=== PATIENT | female | born 1945 | race African-American/Black ===

== ENCOUNTER 2022-09-19 22:40 | Observation (INO) | payer MEDICARE ==
[2022-09-19] MEDS ORDERED: Albuterol 2.5 MG/0.5 ML NEB ONE (23:12)
[2022-09-19] MEDS ORDERED: Ipratropium Bromide 2.5 ml Neb ONE (23:12)
[2022-09-19 23:18] LABS: #Eosinphils 0.3 thou/uL (0.0-0.7); #Monocytes 0.8 thou/uL (0.11-0.59); #Neutrophils 6.1 thou/uL (1.40-6.50); %Basophils 0.3 % (0.0-1.0); %Eosinophils 2.6 % (0.0-10.0); %Lymphocytes 28.5 % (21.0-51.0); %Neutrophils 60.1 % (42.0-75.0); Hemoglobin 12.2 g/dL (12.0-16.0); Mean Corpuscular HGB CONC 32.3 g/dL (32.0-36.0); Mean Corpuscular Hemoglobin 34.7 pg (27.0-31.0); Mean Corpuscular Volume 107.4 fl (78.0-98.0); Mean Platelet Volume 8.6 fL (7.4-10.4); Platelet Count 449 10x3/uL (130-400); RBC Distribution Width 12.5 % (11.5-14.5); Red Blood Cell (RBC) Count 3.52 mill/uL (4.20-5.40); White Blood Cell (WBC) Count 10.2 10x3/uL (4.8-10.8)
[2022-09-19 23:41] LABS: ALT (SGPT) 26 U/L (8-55); AST (SGOT) 25 U/L (5-34); Albumin 4.4 g/dL (3.4-4.8); Alkaline Phosphatase 111 U/L (40-110); Anion Gap 15 mmol/L (10-20); BUN (Urea Nitrogen) 29 mg/dL (9.8-20.1); Bilirubin, Total 0.3 mg/dL (0.2-1.2); Calc. Creatinine Clearance 0 mL/min (70-130); Calcium 10.5 mg/dL (7.8-10.44); Carbon Dioxide 33 mmol/L (23-31); Chloride 95 mmol/L (98-107); Estimated GFR 73; Globulin 4.6 g/dL (2.4-3.5); Glucose 111 mg/dL (83-110); Sodium 138 mmol/L (136-145)
[2022-09-20] MEDS ORDERED: Ondansetron PF 4 MG/2 ML Vial ONE (02:47)
[2022-09-20] MEDS ORDERED: Ondansetron PF 4 MG/2 ML Vial IVP PRN (03:48)
[2022-09-20] MEDS ORDERED: Ondansetron ODT 4 MG TAB PO PRN (03:48)
[2022-09-20] MEDS ORDERED: Acetaminophen 650 MG Suppository PR PRN (03:48)
[2022-09-20] MEDS ORDERED: Acetaminophen 325 MG TAB PO PRN (03:48)
[2022-09-20] MEDS ORDERED: Ipratropium/Albuterol 3 ML NEB NEB PRN (03:58)
[2022-09-20] MEDS ORDERED: methylPREDNISolone Sod Succ 40 MG VIAL IVP SCH (04:45)
[2022-09-20] MEDS ORDERED: methylPREDNISolone Sod Succ/PF 125 MG/2 ML VIAL ONE (04:47)
[2022-09-20] MEDS ORDERED: methylPREDNISolone Sod Succ 40 MG VIAL ONE (04:51)
[2022-09-20] MEDS: Mometasone 200 MCG/Formoterol 5 MCG 120 PUFF INHALER INH SCH ×2 (08:04→18:44)
[2022-09-20] MEDS ORDERED: Iopamidol-370 76% 500 ML MDV (1 ML CHARGE) ONE (12:00)
[2022-09-20 13:21] VITALS: BMI 12.7
[2022-09-21 04:27] LABS: Red Blood Cell (RBC) Count 2.82 mill/uL (4.20-5.40)
[2022-09-21 04:28] LABS: #Eosinphils 0.3 thou/uL (0.0-0.7); #Monocytes 0.8 thou/uL (0.11-0.59); #Neutrophils 4.1 thou/uL (1.40-6.50); %Basophils 0.2 % (0.0-1.0); %Eosinophils 3.6 % (0.0-10.0); %Lymphocytes 34.9 % (21.0-51.0); %Monocytes 9.7 % (0.0-10.0); %Neutrophils 51.5 % (42.0-75.0); Hemoglobin 9.9 g/dL (12.0-16.0); Mean Corpuscular HGB CONC 32.5 g/dL (32.0-36.0); Mean Corpuscular Hemoglobin 35.1 pg (27.0-31.0); Mean Corpuscular Volume 108.2 fl (78.0-98.0); Mean Platelet Volume 8.6 fL (7.4-10.4); Platelet Count 377 10x3/uL (130-400); RBC Distribution Width 12.2 % (11.5-14.5)
[2022-09-21 04:49] LABS: Anion Gap 14 mmol/L (10-20); BUN (Urea Nitrogen) 31 mg/dL (9.8-20.1); Calc. Creatinine Clearance 31 mL/min (70-130); Calcium 9.3 mg/dL (7.8-10.44); Carbon Dioxide 30 mmol/L (23-31); Chloride 99 mmol/L (98-107); Estimated GFR 81; Glucose 99 mg/dL (83-110); Potassium 4.8 mmol/L (3.5-5.1); Sodium 138 mmol/L (136-145)
[2022-09-21] MEDS: Mometasone 200 MCG/Formoterol 5 MCG 120 PUFF INHALER INH SCH ×2 (07:16→19:05)
[2022-09-21] MEDS: methylPREDNISolone Sod Succ 40 MG VIAL IVP SCH (10:24)
[2022-09-21] MEDS: cefTRIAXone\\ROCEPHIN 1 GM in Sodium Chloride 0.9% 100 ML IVPB SCH (15:28)
[2022-09-22] MEDS: Mometasone 200 MCG/Formoterol 5 MCG 120 PUFF INHALER INH SCH (07:08)
[2022-09-22] MEDS: methylPREDNISolone Sod Succ 40 MG VIAL IVP SCH (09:21)
[2022-09-22 16:13] VITALS: BP 116/71; TEMP 96.7
[2022-09-22] MEDS: cefTRIAXone\\ROCEPHIN 1 GM in Sodium Chloride 0.9% 100 ML IVPB SCH (17:04)
== END 2022-09-22 17:03 | disposition home or self-care (01) ==
LOC: EDBD → ERS 22:40 → EDBD 22:40 → ERHOLD 09-20 03:52 → 2NO 09-20 12:04
PROVIDERS: ADMIT Student in an Organized Health Care Education/Training Program; ATTEND Internal Medicine
DX: J44.1 Chronic obstructive pulmonary disease with (acute) exacerbation (principal); R07.9 Chest pain, unspecified; R00.0 Tachycardia, unspecified; E87.3 Alkalosis; E83.52 Hypercalcemia; I11.0 Hypertensive heart disease with heart failure; I50.9 Heart failure, unspecified; R62.7 Adult failure to thrive; Z79.52 Long term (current) use of systemic steroids
CPT/HCPCS: 71045; 71275; 80048; 80053; 82310; 83605; 83880; 84484; 85025 ×2; 93005; 94640 ×4; 96374; 96375 ×2; 96376 ×2; 97116; 99285; G0378 ×4; 36415; J0696; J2405; J2920; J2930; J3490; J7611; Q9967

== ENCOUNTER 2022-09-25 10:46 | Emergency (ER) | payer MEDICARE ==
[2022-09-25] MEDS ORDERED: Magnesium 2 GM/50 ML BAG (IN WATER) ONE (11:31)
[2022-09-25] MEDS ORDERED: Doxycycline 100 MG CAP ONE (11:31)
[2022-09-25] MEDS ORDERED: predniSONE 20 MG TAB ONE (11:31)
[2022-09-25] MEDS ORDERED: Ipratropium/Albuterol 3 ML NEB ONE (11:32)
[2022-09-25 11:40] LABS: #Eosinphils 0.2 thou/uL (0.0-0.7); #Monocytes 0.7 thou/uL (0.11-0.59); #Neutrophils 4.1 thou/uL (1.40-6.50); %Basophils 0.4 % (0.0-1.0); %Eosinophils 2.7 % (0.0-10.0); %Lymphocytes 29.6 % (21.0-51.0); %Monocytes 9.7 % (0.0-10.0); %Neutrophils 57.5 % (42.0-75.0); Hemoglobin 10.4 g/dL (12.0-16.0); Mean Corpuscular HGB CONC 31.8 g/dL (32.0-36.0); Mean Corpuscular Volume 110.1 fl (78.0-98.0); Mean Platelet Volume 8.8 fL (7.4-10.4); Platelet Count 410 10x3/uL (130-400); RBC Distribution Width 12.2 % (11.5-14.5); Red Blood Cell (RBC) Count 2.97 mill/uL (4.20-5.40); White Blood Cell (WBC) Count 7.1 10x3/uL (4.8-10.8)
[2022-09-25 12:02] LABS: CellaVision Operator ID LAB.MJL; Macrocytosis SLIGHT = 6-15 cells HPF (0-5); Platelet Adequacy Comment Platelets Increased; Polychromasia SLIGHT = 2-3 cells HPF (0-2)
[2022-09-25 12:06] LABS: ALT (SGPT) 23 U/L (8-55); AST (SGOT) 23 U/L (5-34); Albumin 3.9 g/dL (3.4-4.8); Alkaline Phosphatase 120 U/L (40-110); Anion Gap 13 mmol/L (10-20); BUN (Urea Nitrogen) 19 mg/dL (9.8-20.1); Bilirubin, Total 0.5 mg/dL (0.2-1.2); Calc. Creatinine Clearance 0 mL/min (70-130); Calcium 9.5 mg/dL (7.8-10.44); Carbon Dioxide 31 mmol/L (23-31); Chloride 99 mmol/L (98-107); Estimated GFR 85; Glucose 79 mg/dL (83-110); Potassium 4.7 mmol/L (3.5-5.1); Protein, Total 7.9 g/dL (5.8-8.1); Sodium 138 mmol/L (136-145)
== END 2022-09-25 13:17 | disposition home or self-care (01) ==
LOC: ERS 10:46
DX: J44.1 Chronic obstructive pulmonary disease with (acute) exacerbation (principal); I11.0 Hypertensive heart disease with heart failure; I50.9 Heart failure, unspecified; Z79.51 Long term (current) use of inhaled steroids; Z79.899 Other long term (current) drug therapy
CPT/HCPCS: 36415; 71045; 80053; 83880; 84484; 85025; 93005; 96365; J3475; J7512; J7620

== ENCOUNTER 2022-09-29 13:23 | Inpatient (IN) | payer MEDICARE ==
[~2022-09-29 13:23] MED LIST: Iopamidol-370 76% 500 ML MDV (1 ML CHARGE) ONE
[2022-09-29 14:12] LABS: #Monocytes 0.1 thou/uL (0.11-0.59); #Neutrophils 7.1 thou/uL (1.40-6.50); %Basophils 0.1 % (0.0-1.0); %Lymphocytes 15.3 % (21.0-51.0); %Monocytes 1.3 % (0.0-10.0); %Neutrophils 83.1 % (42.0-75.0); Hemoglobin 10.9 g/dL (12.0-16.0); Mean Corpuscular HGB CONC 32.2 g/dL (32.0-36.0); Mean Corpuscular Hemoglobin 34.7 pg (27.0-31.0); Mean Platelet Volume 8.8 fL (7.4-10.4); Platelet Count 381 10x3/uL (130-400); Red Blood Cell (RBC) Count 3.14 mill/uL (4.20-5.40); White Blood Cell (WBC) Count 8.5 10x3/uL (4.8-10.8)
[2022-09-29 14:39] LABS: ALT (SGPT) 37 U/L (8-55); AST (SGOT) 29 U/L (5-34); Alkaline Phosphatase 126 U/L (40-110); Anion Gap 17 mmol/L (10-20); BUN (Urea Nitrogen) 18 mg/dL (9.8-20.1); Bilirubin, Total 0.3 mg/dL (0.2-1.2); Calc. Creatinine Clearance 0 mL/min (70-130); Calcium 9.8 mg/dL (7.8-10.44); Carbon Dioxide 28 mmol/L (23-31); Chloride 97 mmol/L (98-107); Estimated GFR 85; Globulin 3.6 g/dL (2.4-3.5); Glucose 120 mg/dL (83-110); Potassium 4.5 mmol/L (3.5-5.1); Protein, Total 7.6 g/dL (5.8-8.1); Sodium 137 mmol/L (136-145)
[2022-09-29 14:40] LABS: Bacteria/HPF None Seen HPF (None Seen); Bilirubin Negative (Negative); Blood, Urine Negative (Negative); CAUTI Indications for Culture Dysuria,urgency,freq; Clarity Clear (Clear); Glucose, Urine (Dipstick) Normal (Negative); Ketone, Urine Negative (Negative); Leukocyte Negative Leu/uL (Negative); Nitrite Negative (Negative); Protein, Urine (Dipstick) Negative (Neg-Trace); RBC/HPF 0-3 HPF (0-3); Specific Gravity, Urine 1.013 (1.002-1.036); Squamous Epithelial 0-3 HPF (0-3); Urobilinogen Normal mg/dL (Less than 2); WBC/HPF 0-3 HPF (0-3); pH, Urine 7.5 (5.0-9.0)
[2022-09-29 14:42] LABS: Urine Culture Reflex No No
[2022-09-29] MEDS ORDERED: methylPREDNISolone Sod Succ/PF 125 MG/2 ML VIAL ONE (14:52)
[2022-09-29] MEDS ORDERED: Ipratropium/Albuterol 3 ML NEB ONE ×2 (15:14→18:41)
[2022-09-29 17:10] LABS: Lactic Acid 2.8 mmol/L (0.5-2.2)
[2022-09-29 17:15] LABS: Lipase 9 U/L (8-78)
[2022-09-29] MEDS ORDERED: cefTRIAXone (ROCEPHIN) 2 GM VIAL ONE (18:38)
[2022-09-29 20:12] LABS: Troponin I Less than 0.010 ng/mL (< 0.028)
[2022-09-29] MEDS ORDERED: Senokot S 8.6-50 MG TAB PO PRN (20:33)
[2022-09-29] MEDS ORDERED: Ondansetron ODT 4 MG TAB PO PRN (20:33)
[2022-09-29] MEDS ORDERED: Acetaminophen 325 MG TAB PO PRN (20:33)
[2022-09-29] MEDS ORDERED: Azithromycin 500 MG VIAL ONE (20:42)
[2022-09-29] MEDS ORDERED: Famotidine 20 MG TAB PO SCH (21:00)
[2022-09-29] MEDS ORDERED: Cyanocobalamin 1000 MCG/ML VIAL IM SCH (21:00)
[2022-09-29] MEDS: Doxycycline 100 MG CAP PO SCH (21:35)
[2022-09-29] MEDS ORDERED: methylPREDNISolone Sod Succ 40 MG VIAL ONE (23:13)
[2022-09-29] MEDS ORDERED: Famotidine/PF 20 mg/2ml Vial ONE (23:13)
[2022-09-29] MEDS: Sodium Chloride 0.9% 1,000 ML IV SCH (23:22)
[2022-09-29] MEDS: methylPREDNISolone Sod Succ 40 MG VIAL IVP SCH (23:22)
[2022-09-30] MEDS: Ipratropium/Albuterol 3 ML NEB NEB SCH ×4 (00:21→18:35)
[2022-09-30 05:19] LABS: #Monocytes 0.2 thou/uL (0.11-0.59); #Neutrophils 6.4 thou/uL (1.40-6.50); %Lymphocytes 13.2 % (21.0-51.0); %Monocytes 2.1 % (0.0-10.0); %Neutrophils 84.2 % (42.0-75.0); Hemoglobin 8.9 g/dL (12.0-16.0); Mean Corpuscular HGB CONC 33.1 g/dL (32.0-36.0); Mean Corpuscular Hemoglobin 35.2 pg (27.0-31.0); Mean Corpuscular Volume 106.3 fl (78.0-98.0); Mean Platelet Volume 8.9 fL (7.4-10.4); Platelet Count 334 10x3/uL (130-400); RBC Distribution Width 11.9 % (11.5-14.5); Red Blood Cell (RBC) Count 2.53 mill/uL (4.20-5.40); White Blood Cell (WBC) Count 7.6 10x3/uL (4.8-10.8)
[2022-09-30 05:38] LABS: Anion Gap 16 mmol/L (10-20); BUN (Urea Nitrogen) 17 mg/dL (9.8-20.1); Calc. Creatinine Clearance 0 mL/min (70-130); Calcium 8.6 mg/dL (7.8-10.44); Carbon Dioxide 25 mmol/L (23-31); Chloride 102 mmol/L (98-107); Estimated GFR 88; Glucose 111 mg/dL (83-110); Potassium 4.5 mmol/L (3.5-5.1); Sodium 138 mmol/L (136-145)
[2022-09-30] MEDS ORDERED: methylPREDNISolone Sod Succ 40 MG VIAL ONE (09:00)
[2022-09-30] MEDS ORDERED: Famotidine 20 MG TAB ONE (09:00)
[2022-09-30] MEDS ORDERED: cefTRIAXone (ROCEPHIN) 1 GM VIAL ONE (09:00)
[2022-09-30] MEDS ORDERED: Polyethylene Glycol 3350 17 GM Packet PO SCH (09:30)
[2022-09-30] MEDS ORDERED: Senokot S 8.6-50 MG TAB PO SCH (09:30)
[2022-09-30] MEDS ORDERED: Bisacodyl 10 MG SUPP PR SCH ×2 (09:45→21:00)
[2022-09-30] MEDS: Famotidine 20 MG TAB PO SCH (10:00)
[2022-09-30] MEDS: methylPREDNISolone Sod Succ 40 MG VIAL IVP SCH (10:00)
[2022-09-30] MEDS: cefTRIAXone\\ROCEPHIN 1 GM in Sodium Chloride 0.9% 100 ML IVPB SCH (10:00)
[2022-09-30 12:52] VITALS: BMI 15.4
[2022-09-30] MEDS: Sodium Chloride 0.9% 1,000 ML IV SCH (14:32)
[2022-09-30] MEDS: predniSONE 20 MG TAB PO SCH (16:24)
[2022-09-30] MEDS ORDERED: Multivit, Therapeutic 1 TAB PO SCH (21:00)
[2022-09-30] MEDS ORDERED: Folic Acid 1 MG TAB PO SCH (21:00)
[2022-09-30] MEDS ORDERED: Cyanocobalamin (Vitamin B-12) 1,000 MCG TAB PO SCH (21:00)
[2022-09-30] MEDS: Polyethylene Glycol 3350 17 GM Packet PO SCH (21:11)
[2022-09-30] MEDS: Senokot S 8.6-50 MG TAB PO SCH (21:11)
[2022-09-30] MEDS: guaiFENesin ER 600 MG TAB PO SCH (21:11)
[2022-09-30] MEDS: Doxycycline 100 MG CAP PO SCH (21:11)
[2022-10-01] MEDS: Ipratropium/Albuterol 3 ML NEB NEB SCH ×3 (00:44→13:37)
[2022-10-01 04:40] LABS: #Monocytes 0.7 thou/uL (0.11-0.59); #Neutrophils 8.3 thou/uL (1.40-6.50); %Basophils 0.1 % (0.0-1.0); %Lymphocytes 15.9 % (21.0-51.0); %Monocytes 6.4 % (0.0-10.0); %Neutrophils 77.2 % (42.0-75.0); Hemoglobin 9.1 g/dL (12.0-16.0); Mean Corpuscular HGB CONC 32.6 g/dL (32.0-36.0); Mean Corpuscular Hemoglobin 35.5 pg (27.0-31.0); Mean Platelet Volume 8.9 fL (7.4-10.4); Platelet Count 338 10x3/uL (130-400); Red Blood Cell (RBC) Count 2.56 mill/uL (4.20-5.40); White Blood Cell (WBC) Count 10.7 10x3/uL (4.8-10.8)
[2022-10-01 05:15] LABS: Anion Gap 12 mmol/L (10-20); BUN (Urea Nitrogen) 17 mg/dL (9.8-20.1); Calc. Creatinine Clearance 41 mL/min (70-130); Calcium 9.2 mg/dL (7.8-10.44); Carbon Dioxide 27 mmol/L (23-31); Chloride 103 mmol/L (98-107); Estimated GFR 88; Glucose 96 mg/dL (83-110); Potassium 4.4 mmol/L (3.5-5.1); Sodium 138 mmol/L (136-145)
[2022-10-01] MEDS: Polyethylene Glycol 3350 17 GM Packet PO SCH (10:30)
[2022-10-01] MEDS: predniSONE 20 MG TAB PO SCH (10:30)
[2022-10-01] MEDS: guaiFENesin ER 600 MG TAB PO SCH (10:30)
[2022-10-01] MEDS: Doxycycline 100 MG CAP PO SCH (10:31)
[2022-10-01] MEDS: Famotidine 20 MG TAB PO SCH (10:31)
[2022-10-01] MEDS: Senokot S 8.6-50 MG TAB PO SCH (10:31)
[2022-10-01] MEDS: cefTRIAXone\\ROCEPHIN 1 GM in Sodium Chloride 0.9% 100 ML IVPB SCH (10:32)
[2022-10-01 11:12] VITALS: BP 140/66; TEMP 98.3
== END 2022-10-01 16:17 | disposition home or self-care (01) | DRG 189 ==
LOC: ERS 13:23 → ERHOLD 19:10 → 2NO 09-30 12:21 → OBSVTOIN 09-30 16:06
PROVIDERS: ADMIT Student in an Organized Health Care Education/Training Program; ATTEND Internal Medicine
DX: J96.21 Acute and chronic respiratory failure with hypoxia (principal); J44.1 Chronic obstructive pulmonary disease with (acute) exacerbation; E87.20 Acidosis, unspecified; I13.0 Hypertensive heart and chronic kidney disease with heart failure and stage 1 through stage 4 chronic kidney disease, or unspecified chronic kidney disease; I50.9 Heart failure, unspecified; K21.9 Gastro-esophageal reflux disease without esophagitis; D63.1 Anemia in chronic kidney disease; E86.0 Dehydration; N18.2 Chronic kidney disease, stage 2 (mild); K59.00 Constipation, unspecified; Z79.51 Long term (current) use of inhaled steroids; Z79.899 Other long term (current) drug therapy
CPT/HCPCS: 36415; 51701; 71045; 74177; 80048; 80053; 81001; 83605; 83690; 83735; 83880; 84484; 85025; 87040; 87086; 93005; 94640; 96365; 96366; 96367; 96374; 96376; G0378; J0456; J0696; J2920; J2930; J3420; J3490; J7050; J7512; J7620; Q9967; S0028

== ENCOUNTER 2022-11-10 21:50 | Emergency (ER) | payer MEDICARE ==
[2022-11-10 22:33] LABS: #Eosinphils 0.2 thou/uL (0.0-0.7); #Monocytes 0.5 thou/uL (0.11-0.59); #Neutrophils 2.4 thou/uL (1.40-6.50); %Basophils 0.7 % (0.0-1.0); %Eosinophils 3.3 % (0.0-10.0); %Lymphocytes 45.8 % (21.0-51.0); %Monocytes 8.7 % (0.0-10.0); %Neutrophils 41.3 % (42.0-75.0); Hematocrit 31.9 % (36.0-47.0); Hemoglobin 10.3 g/dL (12.0-16.0); Mean Corpuscular HGB CONC 32.3 g/dL (32.0-36.0); Mean Corpuscular Hemoglobin 34.1 pg (27.0-31.0); Mean Corpuscular Volume 105.6 fl (78.0-98.0); Mean Platelet Volume 8.8 fL (7.4-10.4); Platelet Count 377 10x3/uL (130-400); RBC Distribution Width 11.9 % (11.5-14.5); Red Blood Cell (RBC) Count 3.02 mill/uL (4.20-5.40); White Blood Cell (WBC) Count 5.8 10x3/uL (4.8-10.8)
[2022-11-10 22:56] LABS: ALT (SGPT) 16 U/L (8-55); AST (SGOT) 22 U/L (5-34); Albumin 3.6 g/dL (3.4-4.8); Alkaline Phosphatase 72 U/L (40-110); Anion Gap 17 mmol/L (10-20); BUN (Urea Nitrogen) 10 mg/dL (9.8-20.1); Bilirubin, Total 0.4 mg/dL (0.2-1.2); Calc. Creatinine Clearance 0 mL/min (70-130); Calcium 9.1 mg/dL (7.8-10.44); Carbon Dioxide 28 mmol/L (23-31); Chloride 101 mmol/L (98-107); Estimated GFR 88; Globulin 3.5 g/dL (2.4-3.5); Glucose 90 mg/dL (83-110); Potassium 3.3 mmol/L (3.5-5.1); Protein, Total 7.1 g/dL (5.8-8.1); Sodium 143 mmol/L (136-145)
[2022-11-10 22:58] LABS: Troponin I Less than 0.010 ng/mL (< 0.028)
[2022-11-10] MEDS ORDERED: Ipratropium/Albuterol 3 ML NEB ONE (23:20)
[2022-11-10 23:57] LABS: SARS-CoV-2 NAA Rapid Test Not Detected (NotDetected)
[2022-11-11 01:47] LABS: Bilirubin Negative (Negative); Blood, Urine Negative (Negative); CAUTI Indications for Culture Alt mental st,lethar; Clarity Clear (Clear); Glucose, Urine (Dipstick) Normal (Negative); Ketone, Urine Trace mg/dL (Negative); Leukocyte 500 Leu/uL (Negative); Nitrite Negative (Negative); Protein, Urine (Dipstick) 10 mg/dL (Neg-Trace); Squamous Epithelial 0-3 HPF (0-3); pH, Urine 6.5 (5.0-9.0)
[2022-11-11 01:49] LABS: Bacteria/HPF 1+ HPF (None Seen)
[2022-11-11 01:50] LABS: Urine Culture Reflex No No
== END 2022-11-11 02:18 | disposition home or self-care (01) ==
LOC: ERS 21:50
DX: E86.0 Dehydration (principal); N39.0 Urinary tract infection, site not specified; R05.9 Cough, unspecified; I11.0 Hypertensive heart disease with heart failure; I50.9 Heart failure, unspecified; J44.9 Chronic obstructive pulmonary disease, unspecified; Z20.822 Contact with and (suspected) exposure to COVID-19
CPT/HCPCS: 71045; 80053; 81001; 83880; 84484; 85025; 87086; 93005; 94760; U0002; 96360; J7620

== ENCOUNTER 2023-01-25 04:17 | Inpatient (IN) | payer MEDICARE ==
[2023-01-25] MEDS ORDERED: Ipratropium/Albuterol 3 ML NEB ONE (04:53)
[2023-01-25 05:00] LABS: Actual Bicarbonate (HCO3v) 31.2 mEq/L (22-28); Analyzer IN Cardio ER; Base Excess 3.7 mEq/L (-2.0 to +3.0); Calcium, Ionized (venous) 1.19 mmol/L (1.16-1.32); Chloride (VBG) 103 mmol/L (98-106); Hematocrit-VBG 37 % (36.0-47.0); Hemoglobin (Hb) 12.5 g/dL (11.7-16.1); Potassium (VBG) 3.98 mmol/L (3.70-5.30); Sodium 144 mmol/L (133-146); pH (venous) 7.324 (7.32-7.43)
[2023-01-25 05:01] LABS: #Basophils 0.1 thou/uL (0.0-0.2); #Eosinphils 0.7 thou/uL (0.0-0.7); #Monocytes 0.7 thou/uL (0.11-0.59); #Neutrophils 2.4 thou/uL (1.40-6.50); %Basophils 0.8 % (0.0-1.0); %Eosinophils 9.9 % (0.0-10.0); %Lymphocytes 45.5 % (21.0-51.0); %Monocytes 9.7 % (0.0-10.0); Hematocrit 36.4 % (36.0-47.0); Hemoglobin 11.8 g/dL (12.0-16.0); Mean Corpuscular HGB CONC 32.4 g/dL (32.0-36.0); Mean Corpuscular Hemoglobin 34.5 pg (27.0-31.0); Mean Corpuscular Volume 106.4 fl (78.0-98.0); Mean Platelet Volume 8.9 fL (7.4-10.4); Platelet Count 434 10x3/uL (130-400); RBC Distribution Width 12.3 % (11.5-14.5); Red Blood Cell (RBC) Count 3.42 mill/uL (4.20-5.40); White Blood Cell (WBC) Count 7.2 10x3/uL (4.8-10.8)
[2023-01-25 05:21] LABS: ALT (SGPT) 13 U/L (8-55); AST (SGOT) 20 U/L (5-34); Albumin 4.5 g/dL (3.4-4.8); Alkaline Phosphatase 85 U/L (40-110); Anion Gap 13 mmol/L (10-20); BUN (Urea Nitrogen) 11 mg/dL (9.8-20.1); Bilirubin, Total 0.3 mg/dL (0.2-1.2); Calc. Creatinine Clearance 0 mL/min (70-130); Carbon Dioxide 33 mmol/L (23-31); Chloride 103 mmol/L (98-107); Estimated GFR 74; Globulin 3.8 g/dL (2.4-3.5); Glucose 99 mg/dL (83-110); Lipase 6 U/L (8-78); Potassium 3.9 mmol/L (3.5-5.1); Protein, Total 8.3 g/dL (5.8-8.1); Sodium 145 mmol/L (136-145)
[2023-01-25 05:43] LABS: SARS-CoV-2 NAA Rapid Test Not Detected (NotDetected)
[2023-01-25] MEDS ORDERED: methylPREDNISolone Sod Succ 40 MG VIAL ONE (06:01)
[2023-01-25] MEDS ORDERED: Piperacillin/Tazobactam 3.375 GM VIAL ONE (06:41)
[2023-01-25] MEDS ORDERED: Vancomycin 1 GM/200 ML (FROZEN) BAG ONE (06:42)
[2023-01-25] MEDS ORDERED: Ondansetron PF 4 MG/2 ML Vial IVP PRN (07:53)
[2023-01-25] MEDS ORDERED: Acetaminophen 325 MG TAB PO PRN (07:53)
[2023-01-25 08:05] LABS: Lactic Acid 2.1 mmol/L (0.5-2.2)
[2023-01-25 08:13] LABS: Troponin I 0.023 ng/mL (< 0.028)
[2023-01-25] MEDS ORDERED: Budesonide 0.5 MG/2 ML NEB NEB SCH (08:30)
[2023-01-25] MEDS ORDERED: Arformoterol 15 MCG/2 ML NEB NEB SCH (08:30)
[2023-01-25 10:06] VITALS: BMI 19.5
[2023-01-25] MEDS: Escitalopram Oxalate 10 mg Tablet PO SCH (10:51)
[2023-01-25] MEDS: methylPREDNISolone Sod Succ 40 MG VIAL IVP SCH ×2 (12:35→17:23)
[2023-01-25] MEDS: Piperacillin/Tazobactam 3.375 GM in Sodium Chloride 0.9% 100 ML IVPB SCH ×2 (12:35→20:40)
[2023-01-25] MEDS: Ipratropium/Albuterol 3 ML NEB NEB SCH ×2 (13:38→18:25)
[2023-01-25] MEDS: Benzonatate 100 MG CAP PO PRN ×2 (17:52→21:43)
[2023-01-25] MEDS ORDERED: FLU VACC QS2023(65UP)/MF59C/PF 60 MCG/0.5 ML SYRINGE IM ONE (18:00)
[2023-01-25] MEDS: Arformoterol 15 MCG/2 ML NEB NEB SCH (18:27)
[2023-01-25] MEDS: Budesonide 0.5 MG/2 ML NEB NEB SCH (18:27)
[2023-01-25] MEDS: guaiFENesin 200 MG TAB PO PRN (20:41)
[2023-01-25] MEDS ORDERED: Atorvastatin Calcium 10 MG TAB PO SCH (21:00)
[2023-01-26] MEDS: methylPREDNISolone Sod Succ 40 MG VIAL IVP SCH ×3 (00:19→12:21)
[2023-01-26] MEDS: Ipratropium/Albuterol 3 ML NEB NEB SCH ×5 (01:05→23:51)
[2023-01-26] MEDS: guaiFENesin 200 MG TAB PO PRN (01:54)
[2023-01-26] MEDS: Piperacillin/Tazobactam 3.375 GM in Sodium Chloride 0.9% 100 ML IVPB SCH ×2 (03:58→12:21)
[2023-01-26 06:28] LABS: #Monocytes 0.2 thou/uL (0.11-0.59); #Neutrophils 4.5 thou/uL (1.40-6.50); %Basophils 0.2 % (0.0-1.0); %Lymphocytes 18.6 % (21.0-51.0); %Monocytes 3.7 % (0.0-10.0); %Neutrophils 77.2 % (42.0-75.0); Hematocrit 30.5 % (36.0-47.0); Hemoglobin 9.9 g/dL (12.0-16.0); Mean Corpuscular HGB CONC 32.5 g/dL (32.0-36.0); Mean Corpuscular Hemoglobin 34.9 pg (27.0-31.0); Mean Corpuscular Volume 107.4 fl (78.0-98.0); Mean Platelet Volume 8.9 fL (7.4-10.4); Platelet Count 374 10x3/uL (130-400); RBC Distribution Width 12.2 % (11.5-14.5); Red Blood Cell (RBC) Count 2.84 mill/uL (4.20-5.40); White Blood Cell (WBC) Count 5.9 10x3/uL (4.8-10.8)
[2023-01-26] MEDS: Arformoterol 15 MCG/2 ML NEB NEB SCH ×2 (06:34→19:08)
[2023-01-26] MEDS: Budesonide 0.5 MG/2 ML NEB NEB SCH ×2 (06:36→19:08)
[2023-01-26 06:53] LABS: Anion Gap 13 mmol/L (10-20); BUN (Urea Nitrogen) 20 mg/dL (9.8-20.1); Calc. Creatinine Clearance 51 mL/min (70-130); Calcium 8.7 mg/dL (7.8-10.44); Carbon Dioxide 27 mmol/L (23-31); Estimated GFR 88; Glucose 113 mg/dL (83-110)
[2023-01-26 06:57] LABS: Chloride 107 mmol/L (98-107); Potassium 3.9 mmol/L (3.5-5.1); Sodium 143 mmol/L (136-145)
[2023-01-26] MEDS: Escitalopram Oxalate 10 mg Tablet PO SCH (08:42)
[2023-01-26] MEDS: Benzonatate 100 MG CAP PO PRN ×2 (12:21→20:36)
[2023-01-26] MEDS: cefTRIAXone\\ROCEPHIN 1 GM in Sodium Chloride 0.9% 100 ML IVPB SCH (16:45)
[2023-01-26] MEDS ORDERED: Non-Formulary Item 1 EACH (Budesonide/Formoterol Fumarate [Budesonide-Formoterol 160-4.5] INH SCH (21:00)
[2023-01-27 07:18] VITALS: TEMP 98.1
[2023-01-27] MEDS: Arformoterol 15 MCG/2 ML NEB NEB SCH ×2 (07:45→18:18)
[2023-01-27] MEDS: Budesonide 0.5 MG/2 ML NEB NEB SCH ×2 (07:50→18:18)
[2023-01-27 07:53] LABS: #Monocytes 0.7 thou/uL (0.11-0.59); #Neutrophils 5.2 thou/uL (1.40-6.50); %Basophils 0.4 % (0.0-1.0); %Eosinophils 0.2 % (0.0-10.0); %Lymphocytes 27.3 % (21.0-51.0); %Monocytes 8.8 % (0.0-10.0); %Neutrophils 63.1 % (42.0-75.0); Hematocrit 31.8 % (36.0-47.0); Hemoglobin 10.1 g/dL (12.0-16.0); Mean Corpuscular HGB CONC 31.8 g/dL (32.0-36.0); Mean Corpuscular Hemoglobin 34.2 pg (27.0-31.0); Mean Corpuscular Volume 107.8 fl (78.0-98.0); Platelet Count 379 10x3/uL (130-400); RBC Distribution Width 12.6 % (11.5-14.5); Red Blood Cell (RBC) Count 2.95 mill/uL (4.20-5.40); White Blood Cell (WBC) Count 8.3 10x3/uL (4.8-10.8)
[2023-01-27] MEDS: Ipratropium/Albuterol 3 ML NEB NEB SCH ×3 (07:57→18:17)
[2023-01-27] MEDS ORDERED: predniSONE 50 MG TAB PO SCH (08:00)
[2023-01-27 08:11] LABS: Anion Gap 15 mmol/L (10-20); BUN (Urea Nitrogen) 22 mg/dL (9.8-20.1); Calc. Creatinine Clearance 52 mL/min (70-130); Calcium 8.7 mg/dL (7.8-10.44); Carbon Dioxide 26 mmol/L (23-31); Chloride 107 mmol/L (98-107); Estimated GFR 88; Glucose 76 mg/dL (83-110); Potassium 3.8 mmol/L (3.5-5.1); Sodium 144 mmol/L (136-145)
[2023-01-27] MEDS: Escitalopram Oxalate 10 mg Tablet PO SCH (08:23)
[2023-01-27] MEDS ORDERED: Atorvastatin Calcium 10 MG TAB PO SCH (09:00)
[2023-01-27] MEDS ORDERED: Aspirin 81 mg Enteric Coated Tablet PO SCH (09:00)
[2023-01-27] MEDS ORDERED: Fluticasone Propionate Nasal Spray 16 gm Bottle NASAL SCH (09:00)
[2023-01-27] MEDS ORDERED: Saccharomyces boulardii 250 MG CAP PO SCH (09:00)
[2023-01-27 11:29] VITALS: BP 120/62
[2023-01-27] MEDS: cefTRIAXone\\ROCEPHIN 1 GM in Sodium Chloride 0.9% 100 ML IVPB SCH (18:18)
== END 2023-01-27 18:52 | disposition home or self-care (01) | DRG 189 ==
LOC: ERS 04:17 → T4-A 07:03
PROVIDERS: ADMIT Student in an Organized Health Care Education/Training Program; ATTEND Hospitalist
DX: J96.21 Acute and chronic respiratory failure with hypoxia (principal); E43 Unspecified severe protein-calorie malnutrition; J44.1 Chronic obstructive pulmonary disease with (acute) exacerbation; Z68.41 Body mass index [BMI] 40.0-44.9, adult; J96.22 Acute and chronic respiratory failure with hypercapnia; I11.0 Hypertensive heart disease with heart failure; I50.9 Heart failure, unspecified; F39 Unspecified mood [affective] disorder; E78.5 Hyperlipidemia, unspecified; K21.9 Gastro-esophageal reflux disease without esophagitis; R13.12 Dysphagia, oropharyngeal phase; Z20.822 Contact with and (suspected) exposure to COVID-19
CPT/HCPCS: 36415; 71045; 80048; 80053; 82805; 83605; 83690; 83735; 83880; 84484; 85025; 87040; 87077; 87149; 87186; 90471; 90694; 93005; 94640; 96365; 96367; 96375; G0008; J0696; J1650; J2543; J2920; J3370-JW; J3475; J3490; J7512; J7620; J7626

== ENCOUNTER 2023-02-08 08:45 | Emergency (ER) | payer MEDICARE ==
[2023-02-08 10:09] LABS: #Basophils 0.1 thou/uL (0.0-0.2); #Eosinphils 0.7 thou/uL (0.0-0.7); #Monocytes 0.6 thou/uL (0.11-0.59); %Basophils 0.8 % (0.0-1.0); %Eosinophils 8.8 % (0.0-10.0); %Lymphocytes 31.2 % (21.0-51.0); %Monocytes 7.5 % (0.0-10.0); %Neutrophils 51.4 % (42.0-75.0); Hematocrit 36.5 % (36.0-47.0); Hemoglobin 11.8 g/dL (12.0-16.0); Mean Corpuscular HGB CONC 32.3 g/dL (32.0-36.0); Mean Corpuscular Hemoglobin 35.1 pg (27.0-31.0); Mean Corpuscular Volume 108.6 fl (78.0-98.0); Mean Platelet Volume 8.9 fL (7.4-10.4); Platelet Count 341 10x3/uL (130-400); RBC Distribution Width 12.3 % (11.5-14.5); Red Blood Cell (RBC) Count 3.36 mill/uL (4.20-5.40); White Blood Cell (WBC) Count 7.7 10x3/uL (4.8-10.8)
[2023-02-08 10:33] LABS: ALT (SGPT) 25 U/L (8-55); AST (SGOT) 27 U/L (5-34); Albumin 4.4 g/dL (3.4-4.8); Alkaline Phosphatase 80 U/L (40-110); Anion Gap 16 mmol/L (10-20); BUN (Urea Nitrogen) 10 mg/dL (9.8-20.1); Bilirubin, Total 0.7 mg/dL (0.2-1.2); Calc. Creatinine Clearance 0 mL/min (70-130); Calcium 9.5 mg/dL (7.8-10.44); Carbon Dioxide 28 mmol/L (23-31); Chloride 100 mmol/L (98-107); Estimated GFR 74; Globulin 4.3 g/dL (2.4-3.5); Glucose 84 mg/dL (83-110); Lipase 7 U/L (8-78); Protein, Total 8.7 g/dL (5.8-8.1); Sodium 139 mmol/L (136-145)
[2023-02-08 10:41] LABS: Troponin I Less than 0.010 ng/mL (< 0.028)
[2023-02-08 13:20] LABS: Bacteria/HPF None Seen HPF (None Seen); Bilirubin Negative (Negative); Blood, Urine Negative (Negative); CAUTI Indications for Culture Dysuria,urgency,freq; Clarity Clear (Clear); Glucose, Urine (Dipstick) Normal (Negative); Ketone, Urine Negative (Negative); Leukocyte Negative Leu/uL (Negative); Nitrite Negative (Negative); Protein, Urine (Dipstick) 10 mg/dL (Neg-Trace); RBC/HPF 0-3 HPF (0-3); Specific Gravity, Urine 1.046 (1.002-1.036); Squamous Epithelial 0-3 HPF (0-3); Urobilinogen Normal mg/dL (Less than 2)
[2023-02-08 13:21] LABS: Urine Culture Reflex No No
== END 2023-02-08 13:05 | disposition home or self-care (01) ==
LOC: ERS 08:45
DX: K59.00 Constipation, unspecified (principal); I11.0 Hypertensive heart disease with heart failure; I50.9 Heart failure, unspecified; J44.9 Chronic obstructive pulmonary disease, unspecified
CPT/HCPCS: 36415; 71046; 74177; 80053; 81001; 83605; 83690; 84484; 85025; 93005

== ENCOUNTER 2023-02-12 05:45 | Inpatient (IN) | payer MEDICARE ==
[2023-02-12] MEDS ORDERED: Magnesium 2 GM/50 ML BAG (IN WATER) ONE (05:57)
[2023-02-12 06:11] LABS: #Basophils 0.1 thou/uL (0.0-0.2); #Eosinphils 0.7 thou/uL (0.0-0.7); #Monocytes 0.7 thou/uL (0.11-0.59); #Neutrophils 3.7 thou/uL (1.40-6.50); %Basophils 0.6 % (0.0-1.0); %Eosinophils 8.3 % (0.0-10.0); %Lymphocytes 38.5 % (21.0-51.0); %Monocytes 8.2 % (0.0-10.0); %Neutrophils 44.3 % (42.0-75.0); Hematocrit 35.4 % (36.0-47.0); Hemoglobin 11.3 g/dL (12.0-16.0); Mean Corpuscular HGB CONC 31.9 g/dL (32.0-36.0); Mean Corpuscular Volume 109.6 fl (78.0-98.0); Mean Platelet Volume 8.8 fL (7.4-10.4); Platelet Count 305 10x3/uL (130-400); RBC Distribution Width 12.1 % (11.5-14.5); Red Blood Cell (RBC) Count 3.23 mill/uL (4.20-5.40); White Blood Cell (WBC) Count 8.3 10x3/uL (4.8-10.8)
[2023-02-12] MEDS ORDERED: Ipratropium/Albuterol 3 ML NEB ONE (06:28)
[2023-02-12 06:41] LABS: Troponin I Less than 0.010 ng/mL (< 0.028)
[2023-02-12 06:43] LABS: ALT (SGPT) 22 U/L (8-55); AST (SGOT) 25 U/L (5-34); Alkaline Phosphatase 91 U/L (40-110); Anion Gap 14 mmol/L (10-20); BUN (Urea Nitrogen) 7 mg/dL (9.8-20.1); Bilirubin, Total 0.5 mg/dL (0.2-1.2); Calc. Creatinine Clearance 0 mL/min (70-130); Calcium 9.4 mg/dL (7.8-10.44); Carbon Dioxide 31 mmol/L (23-31); Chloride 100 mmol/L (98-107); Estimated GFR 77; Globulin 4.3 g/dL (2.4-3.5); Glucose 96 mg/dL (83-110); Potassium 4.2 mmol/L (3.5-5.1); Protein, Total 8.3 g/dL (5.8-8.1); Sodium 141 mmol/L (136-145)
[2023-02-12] MEDS ORDERED: Ipratropium/Albuterol 3 ML NEB NEB PRN (07:21)
[2023-02-12] MEDS ORDERED: Ondansetron ODT 4 MG TAB PO PRN (07:24)
[2023-02-12] MEDS ORDERED: Ondansetron PF 4 MG/2 ML Vial IVP PRN (07:24)
[2023-02-12] MEDS ORDERED: Sodium Chloride 0.9% 100 ML ONE (07:30)
[2023-02-12] MEDS ORDERED: Azithromycin 250 MG TAB ONE (07:30)
[2023-02-12] MEDS ORDERED: cefTRIAXone (ROCEPHIN) 1 GM VIAL ONE (07:30)
[2023-02-12] MEDS ORDERED: Non-Formulary Item 1 EACH (Escitalopram Oxalate [Escitalopram Oxalate] 5 MG Tablet) PO SCH (09:00)
[2023-02-12] MEDS ORDERED: Ergocalciferol 1.25 MG(50,000 UNITS) CAP PO SCH ×2 (09:00)
[2023-02-12] MEDS ORDERED: FLUTICASONE FUROATE NS SCH (09:00)
[2023-02-12] MEDS ORDERED: Non-Formulary Item 1 EACH (Budesonide/Formoterol Fumarate [Budesonide-Formoterol 160-4.5] INH SCH (09:00)
[2023-02-12] MEDS: Aspirin 81 mg Enteric Coated Tablet PO SCH (12:18)
[2023-02-12] MEDS: Atorvastatin Calcium 10 MG TAB PO SCH (12:18)
[2023-02-12] MEDS: Escitalopram Oxalate 10 mg Tablet PO SCH (12:18)
[2023-02-12] MEDS: Saccharomyces boulardii 250 MG CAP PO SCH (12:18)
[2023-02-12] MEDS: Fluticasone Propionate Nasal Spray 16 gm Bottle NASAL SCH (12:20)
[2023-02-12] MEDS: methylPREDNISolone Sod Succ 40 MG VIAL IVP SCH ×3 (12:22→23:13)
[2023-02-12] MEDS: Azithromycin 500 MG in Sodium Chloride 0.9% 250 ML 250 ML IVPB SCH (12:33)
[2023-02-12] MEDS: cefTRIAXone\\ROCEPHIN 1 GM in Sodium Chloride 0.9% 100 ML IVPB SCH (12:33)
[2023-02-12] MEDS: Ipratropium/Albuterol 3 ML NEB NEB SCH ×3 (14:27→23:16)
[2023-02-12] MEDS ORDERED: FLU VACC QS2023(65UP)/MF59C/PF 60 MCG/0.5 ML SYRINGE IM ONE (14:30)
[2023-02-12 16:45] VITALS: BMI 14.6
[2023-02-12] MEDS: Mometasone 200 MCG/Formoterol 5 MCG 120 PUFF INHALER INH SCH (18:34)
[2023-02-13] MEDS: methylPREDNISolone Sod Succ 40 MG VIAL IVP SCH ×4 (04:43→22:55)
[2023-02-13] MEDS: Mometasone 200 MCG/Formoterol 5 MCG 120 PUFF INHALER INH SCH ×2 (06:49→21:10)
[2023-02-13 06:52] LABS: #Monocytes 0.1 thou/uL (0.11-0.59); #Neutrophils 4.8 thou/uL (1.40-6.50); %Lymphocytes 12.8 % (21.0-51.0); %Monocytes 2.3 % (0.0-10.0); %Neutrophils 84.5 % (42.0-75.0); Hematocrit 27.7 % (36.0-47.0); Hemoglobin 8.9 g/dL (12.0-16.0); Mean Corpuscular HGB CONC 32.1 g/dL (32.0-36.0); Mean Corpuscular Hemoglobin 34.5 pg (27.0-31.0); Mean Corpuscular Volume 107.4 fl (78.0-98.0); Platelet Count 268 10x3/uL (130-400); RBC Distribution Width 12.1 % (11.5-14.5); Red Blood Cell (RBC) Count 2.58 mill/uL (4.20-5.40); White Blood Cell (WBC) Count 5.7 10x3/uL (4.8-10.8)
[2023-02-13] MEDS: Ipratropium/Albuterol 3 ML NEB NEB SCH ×3 (06:52→21:10)
[2023-02-13 07:17] LABS: Anion Gap 15 mmol/L (10-20); BUN (Urea Nitrogen) 18 mg/dL (9.8-20.1); Calc. Creatinine Clearance 38 mL/min (70-130); Calcium 8.5 mg/dL (7.8-10.44); Carbon Dioxide 28 mmol/L (23-31); Chloride 101 mmol/L (98-107); Estimated GFR 85; Glucose 120 mg/dL (83-110); Potassium 4.8 mmol/L (3.5-5.1); Sodium 139 mmol/L (136-145)
[2023-02-13] MEDS: Azithromycin 500 MG in Sodium Chloride 0.9% 250 ML 250 ML IVPB SCH (08:26)
[2023-02-13] MEDS: Saccharomyces boulardii 250 MG CAP PO SCH (08:26)
[2023-02-13] MEDS: Escitalopram Oxalate 10 mg Tablet PO SCH (08:26)
[2023-02-13] MEDS: Aspirin 81 mg Enteric Coated Tablet PO SCH (08:26)
[2023-02-13] MEDS: Atorvastatin Calcium 10 MG TAB PO SCH (08:26)
[2023-02-13] MEDS: Fluticasone Propionate Nasal Spray 16 gm Bottle NASAL SCH (08:26)
[2023-02-13] MEDS: cefTRIAXone\\ROCEPHIN 1 GM in Sodium Chloride 0.9% 100 ML IVPB SCH (08:27)
[2023-02-13] MEDS: Simethicone Chewable 80 MG TAB PO PRN (18:19)
[2023-02-14] MEDS: Ipratropium/Albuterol 3 ML NEB NEB SCH ×4 (00:42→19:21)
[2023-02-14] MEDS ORDERED: Benzonatate 100 MG CAP PO PRN (01:11)
[2023-02-14] MEDS ORDERED: guaiFENesin/DM ER PO SCH (01:15)
[2023-02-14 05:27] LABS: #Monocytes 0.2 thou/uL (0.11-0.59); #Neutrophils 12.2 thou/uL (1.40-6.50); %Basophils 0.1 % (0.0-1.0); %Lymphocytes 6.5 % (21.0-51.0); %Monocytes 1.5 % (0.0-10.0); %Neutrophils 91.5 % (42.0-75.0); Hematocrit 29.4 % (36.0-47.0); Hemoglobin 9.4 g/dL (12.0-16.0); Mean Corpuscular Hemoglobin 34.8 pg (27.0-31.0); Mean Corpuscular Volume 108.9 fl (78.0-98.0); Mean Platelet Volume 8.9 fL (7.4-10.4); Platelet Count 277 10x3/uL (130-400); RBC Distribution Width 12.4 % (11.5-14.5); White Blood Cell (WBC) Count 13.3 10x3/uL (4.8-10.8)
[2023-02-14 05:47] LABS: Anion Gap 12 mmol/L (10-20); BUN (Urea Nitrogen) 25 mg/dL (9.8-20.1); Calc. Creatinine Clearance 35 mL/min (70-130); Calcium 8.9 mg/dL (7.8-10.44); Carbon Dioxide 31 mmol/L (23-31); Chloride 102 mmol/L (98-107); Estimated GFR 78; Glucose 116 mg/dL (83-110); Potassium 4.6 mmol/L (3.5-5.1); Sodium 140 mmol/L (136-145)
[2023-02-14] MEDS: methylPREDNISolone Sod Succ 40 MG VIAL IVP SCH (06:11)
[2023-02-14] MEDS: Mometasone 200 MCG/Formoterol 5 MCG 120 PUFF INHALER INH SCH ×2 (06:43→19:23)
[2023-02-14] MEDS: Fluticasone Propionate Nasal Spray 16 gm Bottle NASAL SCH (08:10)
[2023-02-14] MEDS: cefTRIAXone\\ROCEPHIN 1 GM in Sodium Chloride 0.9% 100 ML IVPB SCH (08:15)
[2023-02-14] MEDS: Azithromycin 500 MG in Sodium Chloride 0.9% 250 ML 250 ML IVPB SCH (08:15)
[2023-02-14] MEDS: Escitalopram Oxalate 10 mg Tablet PO SCH (08:16)
[2023-02-14] MEDS: Aspirin 81 mg Enteric Coated Tablet PO SCH (08:16)
[2023-02-14] MEDS: guaiFENesin/DM ER PO SCH ×2 (08:16→20:30)
[2023-02-14] MEDS: Saccharomyces boulardii 250 MG CAP PO SCH (08:17)
[2023-02-14] MEDS: Atorvastatin Calcium 10 MG TAB PO SCH (08:17)
[2023-02-14] MEDS: Doxycycline 100 MG CAP PO SCH (20:30)
[2023-02-15] MEDS: Ipratropium/Albuterol 3 ML NEB NEB SCH ×4 (01:32→19:20)
[2023-02-15 03:53] LABS: #Monocytes 0.8 thou/uL (0.11-0.59); #Neutrophils 7.1 thou/uL (1.40-6.50); %Basophils 0.1 % (0.0-1.0); %Eosinophils 0.2 % (0.0-10.0); %Lymphocytes 23.5 % (21.0-51.0); %Monocytes 7.5 % (0.0-10.0); %Neutrophils 68.4 % (42.0-75.0); Hematocrit 29.2 % (36.0-47.0); Hemoglobin 9.2 g/dL (12.0-16.0); Mean Corpuscular HGB CONC 31.5 g/dL (32.0-36.0); Mean Corpuscular Hemoglobin 34.6 pg (27.0-31.0); Mean Corpuscular Volume 109.8 fl (78.0-98.0); Mean Platelet Volume 9.2 fL (7.4-10.4); Platelet Count 254 10x3/uL (130-400); RBC Distribution Width 12.5 % (11.5-14.5); Red Blood Cell (RBC) Count 2.66 mill/uL (4.20-5.40); White Blood Cell (WBC) Count 10.4 10x3/uL (4.8-10.8)
[2023-02-15 04:20] LABS: Anion Gap 10 mmol/L (10-20); BUN (Urea Nitrogen) 24 mg/dL (9.8-20.1); Calc. Creatinine Clearance 36 mL/min (70-130); Calcium 8.6 mg/dL (7.8-10.44); Carbon Dioxide 34 mmol/L (23-31); Chloride 101 mmol/L (98-107); Estimated GFR 80; Glucose 85 mg/dL (83-110); Potassium 4.3 mmol/L (3.5-5.1); Sodium 141 mmol/L (136-145)
[2023-02-15] MEDS: Mometasone 200 MCG/Formoterol 5 MCG 120 PUFF INHALER INH SCH ×2 (06:30→19:21)
[2023-02-15] MEDS: Saccharomyces boulardii 250 MG CAP PO SCH (08:36)
[2023-02-15] MEDS: Aspirin 81 mg Enteric Coated Tablet PO SCH (08:36)
[2023-02-15] MEDS: Atorvastatin Calcium 10 MG TAB PO SCH (08:36)
[2023-02-15] MEDS: Escitalopram Oxalate 10 mg Tablet PO SCH (08:36)
[2023-02-15] MEDS: Fluticasone Propionate Nasal Spray 16 gm Bottle NASAL SCH (08:37)
[2023-02-15] MEDS: guaiFENesin/DM ER PO SCH ×2 (08:37→20:01)
[2023-02-15] MEDS: predniSONE 20 MG TAB PO SCH (08:37)
[2023-02-15] MEDS: Doxycycline 100 MG CAP PO SCH ×2 (08:37→20:01)
[2023-02-15] MEDS: Acetaminophen 325 MG TAB PO PRN (20:01)
[2023-02-16] MEDS: Simethicone Chewable 80 MG TAB PO PRN (01:05)
[2023-02-16] MEDS ORDERED: Ipratropium/Albuterol 3 ML NEB ONE (01:18)
[2023-02-16] MEDS: Calcium Carbonate 500 MG ChewTAB PO PRN ×2 (01:27→20:40)
[2023-02-16] MEDS: Acetaminophen 325 MG TAB PO PRN ×2 (01:28→20:41)
[2023-02-16] MEDS: Ipratropium/Albuterol 3 ML NEB NEB SCH ×4 (01:29→18:19)
[2023-02-16 02:01] LABS: Magnesium 2.1 mg/dL (1.6-2.6)
[2023-02-16 02:05] LABS: Troponin I 0.013 ng/mL (< 0.028)
[2023-02-16 06:20] LABS: #Eosinphils 0.1 thou/uL (0.0-0.7); #Monocytes 0.8 thou/uL (0.11-0.59); #Neutrophils 4.6 thou/uL (1.40-6.50); %Basophils 0.1 % (0.0-1.0); %Eosinophils 1.4 % (0.0-10.0); %Lymphocytes 30.5 % (21.0-51.0); %Monocytes 10.1 % (0.0-10.0); %Neutrophils 57.7 % (42.0-75.0); Hematocrit 28.1 % (36.0-47.0); Hemoglobin 8.9 g/dL (12.0-16.0); Mean Corpuscular HGB CONC 31.7 g/dL (32.0-36.0); Mean Corpuscular Hemoglobin 34.4 pg (27.0-31.0); Mean Corpuscular Volume 108.5 fl (78.0-98.0); Mean Platelet Volume 9.3 fL (7.4-10.4); Platelet Count 271 10x3/uL (130-400); RBC Distribution Width 12.3 % (11.5-14.5); Red Blood Cell (RBC) Count 2.59 mill/uL (4.20-5.40)
[2023-02-16] MEDS: Mometasone 200 MCG/Formoterol 5 MCG 120 PUFF INHALER INH SCH ×2 (06:43→18:19)
[2023-02-16 06:47] LABS: Anion Gap 10 mmol/L (10-20); BUN (Urea Nitrogen) 28 mg/dL (9.8-20.1); Calc. Creatinine Clearance 38 mL/min (70-130); Calcium 9.1 mg/dL (7.8-10.44); Carbon Dioxide 35 mmol/L (23-31); Chloride 100 mmol/L (98-107); Estimated GFR 86; Glucose 82 mg/dL (83-110); Potassium 4.1 mmol/L (3.5-5.1); Sodium 141 mmol/L (136-145)
[2023-02-16] MEDS: guaiFENesin/DM ER PO SCH ×2 (08:29→20:40)
[2023-02-16] MEDS: Aspirin 81 mg Enteric Coated Tablet PO SCH (08:29)
[2023-02-16] MEDS: Fluticasone Propionate Nasal Spray 16 gm Bottle NASAL SCH (08:29)
[2023-02-16] MEDS: Atorvastatin Calcium 10 MG TAB PO SCH (08:29)
[2023-02-16] MEDS: predniSONE 20 MG TAB PO SCH (08:29)
[2023-02-16] MEDS: Doxycycline 100 MG CAP PO SCH ×2 (08:29→20:40)
[2023-02-16] MEDS: Saccharomyces boulardii 250 MG CAP PO SCH (08:29)
[2023-02-16] MEDS: Escitalopram Oxalate 10 mg Tablet PO SCH (08:29)
[2023-02-17] MEDS: Ipratropium/Albuterol 3 ML NEB NEB SCH ×3 (00:48→13:26)
[2023-02-17] MEDS: Mometasone 200 MCG/Formoterol 5 MCG 120 PUFF INHALER INH SCH (06:26)
[2023-02-17] MEDS: Aspirin 81 mg Enteric Coated Tablet PO SCH (08:12)
[2023-02-17] MEDS: Escitalopram Oxalate 10 mg Tablet PO SCH (08:12)
[2023-02-17] MEDS: Saccharomyces boulardii 250 MG CAP PO SCH (08:12)
[2023-02-17] MEDS: predniSONE 20 MG TAB PO SCH (08:12)
[2023-02-17] MEDS: Atorvastatin Calcium 10 MG TAB PO SCH (08:12)
[2023-02-17] MEDS: Doxycycline 100 MG CAP PO SCH (08:12)
[2023-02-17] MEDS: guaiFENesin/DM ER PO SCH (08:13)
[2023-02-17] MEDS: Fluticasone Propionate Nasal Spray 16 gm Bottle NASAL SCH (08:13)
[2023-02-17 08:23] VITALS: BP 118/65; TEMP 97.4
== END 2023-02-17 16:56 | disposition home or self-care (01) | DRG 189 ==
LOC: SUATTDRO 05:45 → ERS 05:45 → INTOOBSV 08:35 → T4-A 08:35 → INTOOBSV 02-13 13:44 → OBSVTOIN 02-13 13:44
PROVIDERS: ADMIT Internal Medicine; ATTEND Internal Medicine
DX: J96.21 Acute and chronic respiratory failure with hypoxia (principal); J44.1 Chronic obstructive pulmonary disease with (acute) exacerbation; I50.30 Unspecified diastolic (congestive) heart failure; R64 Cachexia; Z68.1 Body mass index [BMI] 19.9 or less, adult; E44.0 Moderate protein-calorie malnutrition; E78.5 Hyperlipidemia, unspecified; I11.0 Hypertensive heart disease with heart failure; K21.9 Gastro-esophageal reflux disease without esophagitis; R13.10 Dysphagia, unspecified; D53.9 Nutritional anemia, unspecified; E78.2 Mixed hyperlipidemia; F41.8 Other specified anxiety disorders; R62.7 Adult failure to thrive; Z79.899 Other long term (current) drug therapy; Z79.51 Long term (current) use of inhaled steroids; Z79.82 Long term (current) use of aspirin
CPT/HCPCS: 36415; 71045; 80048; 80053; 83735; 84484; 85025; 87070; 87205; 93005; 96365; 96367; 96375; 96376; G0378; J0456; J0696; J2920; J3475; J3490; J7050; J7512; J7620

== ENCOUNTER 2023-03-12 05:35 | Inpatient (IN) | payer MEDICARE ==
[2023-03-12] MEDS ORDERED: Magnesium 2 GM/50 ML BAG (IN WATER) ONE (05:43)
[2023-03-12] MEDS ORDERED: Budesonide 0.5 MG/2 ML NEB ONE (05:55)
[2023-03-12] MEDS ORDERED: Ipratropium/Albuterol 3 ML NEB ONE (05:55)
[2023-03-12 06:16] LABS: Actual Bicarbonate (HCO3a) 27.9 mEq/L (22-28); Analyzer IN Cardio ER; Base Excess (BEa) 2.1 mEq/L (-2.0 to +3.0); CO2 Tension 49.2 mmHg (35.0-45.0); Calcium, Ionized (arterial) 1.15 mmol/L (1.12-1.30); Carboxyhemoglobin (COHb) 0.3 gm% (0.0-3.0); Hematocrit-ABG 33 % (36.0-47.0); Hemoglobin (Hb) 11.1 g/dL (12.0-16.0); O2 Tension (PaO2), arterial 157.6 mmHg (> 70.0); Potassium - ABG Lab 3.39 mmol/L (3.70-5.30); pH, Arterial 7.372 (7.35-7.45)
[2023-03-12 06:20] LABS: Puncture Site LRA
[2023-03-12 06:34] LABS: #Eosinphils 0.5 thou/uL (0.0-0.7); #Monocytes 0.5 thou/uL (0.11-0.59); #Neutrophils 1.6 thou/uL (1.40-6.50); %Basophils 0.3 % (0.0-1.0); %Lymphocytes 54.5 % (21.0-51.0); %Monocytes 8.8 % (0.0-10.0); %Neutrophils 27.2 % (42.0-75.0); Hematocrit 33.2 % (36.0-47.0); Hemoglobin 10.8 g/dL (12.0-16.0); Mean Corpuscular HGB CONC 32.5 g/dL (32.0-36.0); Mean Corpuscular Hemoglobin 35.4 pg (27.0-31.0); Mean Corpuscular Volume 108.9 fl (78.0-98.0); Mean Platelet Volume 8.8 fL (7.4-10.4); Platelet Count 332 10x3/uL (130-400); RBC Distribution Width 12.6 % (11.5-14.5); Red Blood Cell (RBC) Count 3.05 mill/uL (4.20-5.40)
[2023-03-12] MEDS ORDERED: Sodium Chloride 0.9% 100 ML ONE (07:16)
[2023-03-12] MEDS ORDERED: cefTRIAXone (ROCEPHIN) 2 GM VIAL ONE (07:16)
[2023-03-12] MEDS ORDERED: guaiFENesin ER 600 MG TAB ONE (07:17)
[2023-03-12 07:27] LABS: SARS-CoV-2 NAA Rapid Test Not Detected (NotDetected)
[2023-03-12] MEDS ORDERED: Acetaminophen 325 MG TAB PO PRN (07:57)
[2023-03-12] MEDS ORDERED: Ondansetron PF 4 MG/2 ML Vial IVP PRN (07:57)
[2023-03-12] MEDS ORDERED: Ondansetron ODT 4 MG TAB PO PRN (07:57)
[2023-03-12] MEDS ORDERED: Azithromycin 500 MG VIAL ONE (08:12)
[2023-03-12 08:22] LABS: Albumin 3.8 g/dL (3.4-4.8); Anion Gap 17 mmol/L (10-20); BUN (Urea Nitrogen) 16 mg/dL (9.8-20.1); Bilirubin, Total 0.5 mg/dL (0.2-1.2); Calc. Creatinine Clearance 0 mL/min (70-130); Calcium 9.1 mg/dL (7.6-10.4); Carbon Dioxide 25 mmol/L (23-31); Chloride 104 mmol/L (98-107); Estimated GFR 86; Globulin 3.9 g/dL (2.4-3.5); Glucose 94 mg/dL (83-110); Potassium 3.6 mmol/L (3.5-5.1); Protein, Total 7.7 g/dL (5.8-8.1); Sodium 142 mmol/L (136-145)
[2023-03-12 08:23] LABS: ALT (SGPT) 12 U/L (8-55); AST (SGOT) 23 U/L (5-34); Alkaline Phosphatase 74 U/L (40-110); Magnesium 3.4 mg/dL (1.6-2.6)
[2023-03-12 08:57] LABS: Lipase 6 U/L (8-78)
[2023-03-12] MEDS ORDERED: Ergocalciferol 1.25 MG(50,000 UNITS) CAP PO SCH (09:00)
[2023-03-12 09:36] LABS: Troponin I Less than 0.010 ng/mL (< 0.028)
[2023-03-12] MEDS ORDERED: Albuterol 200 PUFF (6.7GM INHALER) INH PRN (09:51)
[2023-03-12 10:51] LABS: Troponin I Less than 0.010 ng/mL (< 0.028)
[2023-03-12] MEDS: Azithromycin 500 MG in Sodium Chloride 0.9% 250 ML 250 ML IVPB SCH (11:16)
[2023-03-12] MEDS: Benzonatate 100 MG CAP PO SCH ×3 (11:17→19:58)
[2023-03-12] MEDS: methylPREDNISolone Sod Succ 40 MG VIAL IVP SCH ×3 (11:17→23:16)
[2023-03-12] MEDS: Escitalopram Oxalate 10 mg Tablet PO SCH (11:18)
[2023-03-12] MEDS: Aspirin 81 mg Enteric Coated Tablet PO SCH (11:18)
[2023-03-12] MEDS: Saccharomyces boulardii 250 MG CAP PO SCH (11:18)
[2023-03-12] MEDS: Atorvastatin Calcium 10 MG TAB PO SCH (11:18)
[2023-03-12] MEDS: Ipratropium/Albuterol 3 ML NEB NEB SCH ×3 (11:26→18:52)
[2023-03-12 12:31] LABS: Troponin I Less than 0.010 ng/mL (< 0.028)
[2023-03-12] MEDS: Mometasone 200 MCG/Formoterol 5 MCG 120 PUFF INHALER INH SCH (18:53)
[2023-03-12 22:44] VITALS: BMI 14.9
[2023-03-13 04:37] LABS: #Monocytes 0.1 thou/uL (0.11-0.59); %Basophils 0.3 % (0.0-1.0); %Lymphocytes 20.2 % (21.0-51.0); %Monocytes 3.3 % (0.0-10.0); %Neutrophils 75.9 % (42.0-75.0); Hemoglobin 8.8 g/dL (12.0-16.0); Mean Corpuscular HGB CONC 31.4 g/dL (32.0-36.0); Mean Corpuscular Hemoglobin 33.8 pg (27.0-31.0); Mean Corpuscular Volume 107.7 fl (78.0-98.0); Mean Platelet Volume 8.9 fL (7.4-10.4); Platelet Count 287 10x3/uL (130-400); RBC Distribution Width 12.6 % (11.5-14.5); White Blood Cell (WBC) Count 3.9 10x3/uL (4.8-10.8)
[2023-03-13 05:04] LABS: Anion Gap 11 mmol/L (10-20); BUN (Urea Nitrogen) 20 mg/dL (9.8-20.1); Calc. Creatinine Clearance 41 mL/min (70-130); Calcium 8.6 mg/dL (7.8-10.44); Carbon Dioxide 29 mmol/L (23-31); Chloride 106 mmol/L (98-107); Estimated GFR 88; Glucose 131 mg/dL (83-110); Potassium 4.5 mmol/L (3.5-5.1); Sodium 141 mmol/L (136-145)
[2023-03-13] MEDS: methylPREDNISolone Sod Succ 40 MG VIAL IVP SCH ×4 (05:51→22:01)
[2023-03-13] MEDS: Mometasone 200 MCG/Formoterol 5 MCG 120 PUFF INHALER INH SCH ×2 (06:48→18:20)
[2023-03-13] MEDS: Ipratropium/Albuterol 3 ML NEB NEB SCH ×4 (06:48→18:19)
[2023-03-13] MEDS: Escitalopram Oxalate 10 mg Tablet PO SCH (11:30)
[2023-03-13] MEDS: Saccharomyces boulardii 250 MG CAP PO SCH (11:30)
[2023-03-13] MEDS: Fluticasone Propionate Nasal Spray 16 gm Bottle NASAL SCH (11:32)
[2023-03-13] MEDS: Benzonatate 100 MG CAP PO SCH ×3 (11:32→22:00)
[2023-03-13] MEDS: Aspirin 81 mg Enteric Coated Tablet PO SCH (11:32)
[2023-03-13] MEDS: Atorvastatin Calcium 10 MG TAB PO SCH (11:32)
[2023-03-13] MEDS: cefTRIAXone\\ROCEPHIN 1 GM in Sodium Chloride 0.9% 100 ML IVPB SCH (11:41)
[2023-03-13] MEDS: Azithromycin 500 MG in Sodium Chloride 0.9% 250 ML 250 ML IVPB SCH (11:43)
[2023-03-14 04:42] LABS: #Monocytes 0.2 thou/uL (0.11-0.59); %Basophils 0.1 % (0.0-1.0); %Lymphocytes 10.4 % (21.0-51.0); %Monocytes 2.3 % (0.0-10.0); %Neutrophils 86.9 % (42.0-75.0); Hematocrit 31.2 % (36.0-47.0); Hemoglobin 9.6 g/dL (12.0-16.0); Mean Corpuscular HGB CONC 30.8 g/dL (32.0-36.0); Mean Corpuscular Hemoglobin 35.3 pg (27.0-31.0); Mean Corpuscular Volume 114.7 fl (78.0-98.0); Mean Platelet Volume 9.2 fL (7.4-10.4); Platelet Count 299 10x3/uL (130-400); RBC Distribution Width 13.1 % (11.5-14.5); Red Blood Cell (RBC) Count 2.72 mill/uL (4.20-5.40); White Blood Cell (WBC) Count 6.9 10x3/uL (4.8-10.8)
[2023-03-14] MEDS: methylPREDNISolone Sod Succ 40 MG VIAL IVP SCH ×4 (04:54→21:07)
[2023-03-14 05:03] LABS: Anion Gap 13 mmol/L (10-20); BUN (Urea Nitrogen) 20 mg/dL (9.8-20.1); Calc. Creatinine Clearance 43 mL/min (70-130); Calcium 8.4 mg/dL (7.8-10.44); Carbon Dioxide 24 mmol/L (23-31); Chloride 104 mmol/L (98-107); Estimated GFR 89; Glucose 117 mg/dL (83-110); Potassium 4.8 mmol/L (3.5-5.1); Sodium 136 mmol/L (136-145)
[2023-03-14 05:18] LABS: Anisocytosis SLIGHT = 6-15 cells HPF (0-5); Burr Cells SLIGHT = 2-5 cells HPF (0-1); CellaVision Operator ID lab.sh2; Hypochromia SLIGHT = 6-15 cells HPF (0-5); Macrocytosis MODERATE=16-30 cells HPF (0-5); Ovalocytes SLIGHT = 2-5 cells HPF (0-1); Platelet Adequacy Comment Platelets Normal; Poikilocytosis SLIGHT = 6-15 cells HPF (0-5); Polychromasia SLIGHT = 2-3 cells HPF (0-2); Tear Drops SLIGHT = 2-5 cells HPF (0-1)
[2023-03-14] MEDS: Ipratropium/Albuterol 3 ML NEB NEB SCH ×4 (07:09→20:08)
[2023-03-14] MEDS: Mometasone 200 MCG/Formoterol 5 MCG 120 PUFF INHALER INH SCH ×2 (07:11→20:08)
[2023-03-14] MEDS: Escitalopram Oxalate 10 mg Tablet PO SCH (11:05)
[2023-03-14] MEDS: Atorvastatin Calcium 10 MG TAB PO SCH ×2 (11:05→11:07)
[2023-03-14] MEDS: Aspirin 81 mg Enteric Coated Tablet PO SCH (11:06)
[2023-03-14] MEDS: Benzonatate 100 MG CAP PO SCH ×3 (11:06→21:07)
[2023-03-14] MEDS: Saccharomyces boulardii 250 MG CAP PO SCH (11:07)
[2023-03-14] MEDS: Fluticasone Propionate Nasal Spray 16 gm Bottle NASAL SCH (11:25)
[2023-03-14] MEDS: cefTRIAXone\\ROCEPHIN 1 GM in Sodium Chloride 0.9% 100 ML IVPB SCH (11:26)
[2023-03-14] MEDS: Azithromycin 500 MG in Sodium Chloride 0.9% 250 ML 250 ML IVPB SCH (11:28)
[2023-03-14] MEDS ORDERED: Azithromycin 500 MG in Sodium Chloride 0.9% 250 ML 250 ML IVPB SCH (12:00)
[2023-03-15] MEDS: methylPREDNISolone Sod Succ 40 MG VIAL IVP SCH ×4 (05:05→21:01)
[2023-03-15 05:18] LABS: #Monocytes 0.3 thou/uL (0.11-0.59); #Neutrophils 6.9 thou/uL (1.40-6.50); %Basophils 0.1 % (0.0-1.0); %Lymphocytes 10.3 % (21.0-51.0); %Monocytes 3.8 % (0.0-10.0); %Neutrophils 85.6 % (42.0-75.0); Hematocrit 29.3 % (36.0-47.0); Hemoglobin 9.6 g/dL (12.0-16.0); Mean Corpuscular HGB CONC 32.8 g/dL (32.0-36.0); Mean Corpuscular Volume 106.9 fl (78.0-98.0); Platelet Count 313 10x3/uL (130-400); RBC Distribution Width 12.6 % (11.5-14.5); Red Blood Cell (RBC) Count 2.74 mill/uL (4.20-5.40); White Blood Cell (WBC) Count 8.1 10x3/uL (4.8-10.8)
[2023-03-15 05:40] LABS: Anion Gap 12 mmol/L (10-20); BUN (Urea Nitrogen) 19 mg/dL (9.8-20.1); Calc. Creatinine Clearance 46 mL/min (70-130); Calcium 8.6 mg/dL (7.8-10.44); Carbon Dioxide 29 mmol/L (23-31); Chloride 104 mmol/L (98-107); Estimated GFR 90; Glucose 117 mg/dL (83-110); Potassium 4.1 mmol/L (3.5-5.1); Sodium 141 mmol/L (136-145)
[2023-03-15] MEDS: Mometasone 200 MCG/Formoterol 5 MCG 120 PUFF INHALER INH SCH ×2 (08:52→19:57)
[2023-03-15] MEDS: Ipratropium/Albuterol 3 ML NEB NEB SCH ×4 (08:53→19:56)
[2023-03-15] MEDS: cefTRIAXone\\ROCEPHIN 1 GM in Sodium Chloride 0.9% 100 ML IVPB SCH (09:09)
[2023-03-15] MEDS: Benzonatate 100 MG CAP PO SCH ×3 (09:10→21:01)
[2023-03-15] MEDS: Aspirin 81 mg Enteric Coated Tablet PO SCH (09:10)
[2023-03-15] MEDS: Saccharomyces boulardii 250 MG CAP PO SCH (09:10)
[2023-03-15] MEDS: Atorvastatin Calcium 10 MG TAB PO SCH (09:10)
[2023-03-15] MEDS: Escitalopram Oxalate 10 mg Tablet PO SCH (09:11)
[2023-03-15] MEDS: Fluticasone Propionate Nasal Spray 16 gm Bottle NASAL SCH (09:11)
[2023-03-16] MEDS: methylPREDNISolone Sod Succ 40 MG VIAL IVP SCH ×4 (04:59→20:38)
[2023-03-16 05:24] LABS: #Monocytes 0.3 thou/uL (0.11-0.59); #Neutrophils 7.4 thou/uL (1.40-6.50); %Lymphocytes 9.3 % (21.0-51.0); %Monocytes 3.7 % (0.0-10.0); %Neutrophils 86.4 % (42.0-75.0); Hematocrit 32.4 % (36.0-47.0); Hemoglobin 10.5 g/dL (12.0-16.0); Mean Corpuscular HGB CONC 32.4 g/dL (32.0-36.0); Mean Corpuscular Hemoglobin 34.7 pg (27.0-31.0); Mean Corpuscular Volume 106.9 fl (78.0-98.0); Platelet Count 345 10x3/uL (130-400); RBC Distribution Width 12.3 % (11.5-14.5); Red Blood Cell (RBC) Count 3.03 mill/uL (4.20-5.40); White Blood Cell (WBC) Count 8.5 10x3/uL (4.8-10.8)
[2023-03-16 05:49] LABS: Anion Gap 10 mmol/L (10-20); BUN (Urea Nitrogen) 22 mg/dL (9.8-20.1); Calc. Creatinine Clearance 40 mL/min (70-130); Calcium 8.7 mg/dL (7.8-10.44); Carbon Dioxide 31 mmol/L (23-31); Chloride 101 mmol/L (98-107); Estimated GFR 85; Glucose 112 mg/dL (83-110); Potassium 4.3 mmol/L (3.5-5.1); Sodium 138 mmol/L (136-145)
[2023-03-16] MEDS: Ipratropium/Albuterol 3 ML NEB NEB SCH ×4 (07:39→19:12)
[2023-03-16] MEDS: Mometasone 200 MCG/Formoterol 5 MCG 120 PUFF INHALER INH SCH ×2 (07:40→19:14)
[2023-03-16] MEDS: Saccharomyces boulardii 250 MG CAP PO SCH (08:43)
[2023-03-16] MEDS: Aspirin 81 mg Enteric Coated Tablet PO SCH (08:43)
[2023-03-16] MEDS: Escitalopram Oxalate 10 mg Tablet PO SCH (08:44)
[2023-03-16] MEDS: cefTRIAXone\\ROCEPHIN 1 GM in Sodium Chloride 0.9% 100 ML IVPB SCH (08:45)
[2023-03-16] MEDS: Benzonatate 100 MG CAP PO SCH ×3 (08:45→20:38)
[2023-03-16] MEDS: Fluticasone Propionate Nasal Spray 16 gm Bottle NASAL SCH (08:45)
[2023-03-16] MEDS: Atorvastatin Calcium 10 MG TAB PO SCH (08:45)
[2023-03-17] MEDS: methylPREDNISolone Sod Succ 40 MG VIAL IVP SCH ×2 (05:44→08:59)
[2023-03-17] MEDS: Ipratropium/Albuterol 3 ML NEB NEB SCH ×3 (07:00→14:50)
[2023-03-17 08:29] LABS: #Monocytes 0.2 thou/uL (0.11-0.59); #Neutrophils 8.1 thou/uL (1.40-6.50); %Basophils 0.1 % (0.0-1.0); %Monocytes 1.9 % (0.0-10.0); %Neutrophils 92.4 % (42.0-75.0); Hematocrit 36.4 % (36.0-47.0); Hemoglobin 11.6 g/dL (12.0-16.0); Mean Corpuscular HGB CONC 31.9 g/dL (32.0-36.0); Mean Corpuscular Hemoglobin 34.5 pg (27.0-31.0); Mean Corpuscular Volume 108.3 fl (78.0-98.0); Mean Platelet Volume 8.9 fL (7.4-10.4); Platelet Count 386 10x3/uL (130-400); RBC Distribution Width 12.5 % (11.5-14.5); Red Blood Cell (RBC) Count 3.36 mill/uL (4.20-5.40); White Blood Cell (WBC) Count 8.8 10x3/uL (4.8-10.8)
[2023-03-17 08:58] LABS: Anion Gap 13 mmol/L (10-20); BUN (Urea Nitrogen) 25 mg/dL (9.8-20.1); Calc. Creatinine Clearance 39 mL/min (70-130); Carbon Dioxide 30 mmol/L (23-31); Chloride 100 mmol/L (98-107); Estimated GFR 81; Glucose 170 mg/dL (83-110); Potassium 3.8 mmol/L (3.5-5.1); Sodium 139 mmol/L (136-145)
[2023-03-17] MEDS: Saccharomyces boulardii 250 MG CAP PO SCH (08:58)
[2023-03-17] MEDS: Escitalopram Oxalate 10 mg Tablet PO SCH (08:58)
[2023-03-17] MEDS: Benzonatate 100 MG CAP PO SCH ×2 (08:58→14:49)
[2023-03-17] MEDS: Fluticasone Propionate Nasal Spray 16 gm Bottle NASAL SCH (08:58)
[2023-03-17] MEDS: Atorvastatin Calcium 10 MG TAB PO SCH (08:59)
[2023-03-17] MEDS: Aspirin 81 mg Enteric Coated Tablet PO SCH (08:59)
[2023-03-17] MEDS: cefTRIAXone\\ROCEPHIN 1 GM in Sodium Chloride 0.9% 100 ML IVPB SCH (08:59)
[2023-03-17] MEDS: Mometasone 200 MCG/Formoterol 5 MCG 120 PUFF INHALER INH SCH (11:04)
[2023-03-17 11:12] VITALS: BP 137/66; TEMP 98.4
== END 2023-03-17 16:37 | disposition home or self-care (01) | DRG 191 ==
LOC: SUATTDRO 05:35 → ERS 05:35 → 2NO 07:57 → OBSVTOIN 03-14 10:55
PROVIDERS: ADMIT Family Medicine; ATTEND Family Medicine
PROC: 4A033R1 Measurement of Arterial Saturation, Peripheral, Percutaneous Approach (ICD-10-PCS; principal; 2023-03-12)
DX: J44.1 Chronic obstructive pulmonary disease with (acute) exacerbation (principal); E46 Unspecified protein-calorie malnutrition; I50.32 Chronic diastolic (congestive) heart failure; R64 Cachexia; Z68.1 Body mass index [BMI] 19.9 or less, adult; K21.9 Gastro-esophageal reflux disease without esophagitis; E78.5 Hyperlipidemia, unspecified; F32.A Depression, unspecified; F41.9 Anxiety disorder, unspecified; I11.0 Hypertensive heart disease with heart failure; Z11.52 Encounter for screening for COVID-19; Z79.82 Long term (current) use of aspirin; Z79.899 Other long term (current) drug therapy; D72.829 Elevated white blood cell count, unspecified
CPT/HCPCS: 36415; 36600; 71045; 80048; 80053; 82805; 83605; 83690; 83735; 83880; 84484; 85025; 87040; 87070; 87205; 93005; 94640; 96365; 96367; 96375; 96376; G0378; J0456; J0696; J2920; J3475; J3490; J7050; J7620; J7626

== ENCOUNTER 2023-04-19 13:40 | Inpatient (IN) | payer MEDICARE ==
[2023-04-19] MEDS ORDERED: Albuterol 2.5 MG (0.5 mL) NEB ONE (14:13)
[2023-04-19] MEDS ORDERED: cefTRIAXone (ROCEPHIN) 2 GM VIAL ONE (14:14)
[2023-04-19] MEDS ORDERED: Sodium Chloride 0.9% 100 ML ONE (14:14)
[2023-04-19] MEDS ORDERED: Magnesium 2 GM/50 ML BAG (IN WATER) ONE (14:14)
[2023-04-19] MEDS ORDERED: Azithromycin 500 MG VIAL ONE (14:14)
[2023-04-19 14:15] LABS: Actual Bicarbonate (HCO3v) 35.6 mEq/L (22-28); Base Excess 7.7 mEq/L (-2.0 to +3.0); Calcium, Ionized (venous) 1.11 mmol/L (1.16-1.32); Chloride (VBG) 102 mmol/L (98-106); Hematocrit-VBG 37 % (36.0-47.0); Hemoglobin (Hb) 12.7 g/dL (11.7-16.1); Potassium (VBG) 3.22 mmol/L (3.70-5.30); pH (venous) 7.342 (7.32-7.43)
[2023-04-19 14:21] LABS: #Basophils 0.1 thou/uL (0.0-0.2); #Eosinphils 0.7 thou/uL (0.0-0.7); #Monocytes 0.7 thou/uL (0.11-0.59); #Neutrophils 1.6 thou/uL (1.40-6.50); %Basophils 0.7 % (0.0-1.0); %Lymphocytes 58.8 % (21.0-51.0); %Monocytes 9.3 % (0.0-10.0); %Neutrophils 22.1 % (42.0-75.0); Hemoglobin 11.5 g/dL (12.0-16.0); Mean Corpuscular HGB CONC 31.9 g/dL (32.0-36.0); Mean Corpuscular Hemoglobin 34.8 pg (27.0-31.0); Mean Corpuscular Volume 109.1 fl (78.0-98.0); Mean Platelet Volume 8.7 fL (7.4-10.4); Platelet Count 366 10x3/uL (130-400); RBC Distribution Width 11.9 % (11.5-14.5); White Blood Cell (WBC) Count 7.2 10x3/uL (4.8-10.8)
[2023-04-19 14:46] LABS: ALT (SGPT) 16 U/L (8-55); AST (SGOT) 24 U/L (5-34); Albumin 4.1 g/dL (3.4-4.8); Alkaline Phosphatase 83 U/L (40-110); Anion Gap 15 mmol/L (10-20); BUN (Urea Nitrogen) 11 mg/dL (9.8-20.1); Bilirubin, Total 0.6 mg/dL (0.2-1.2); Calc. Creatinine Clearance 0 mL/min (70-130); Calcium 9.4 mg/dL (7.8-10.44); Carbon Dioxide 31 mmol/L (23-31); Chloride 101 mmol/L (98-107); Estimated GFR 86; Globulin 3.6 g/dL (2.4-3.5); Glucose 74 mg/dL (83-110); INR-International Normal Ratio 1.1; Potassium 3.4 mmol/L (3.5-5.1); Protein, Total 7.7 g/dL (5.8-8.1); Prothrombin Time 14.4 sec (12.0-14.7); Sodium 144 mmol/L (136-145)
[2023-04-19 14:47] LABS: PTT 28.2 sec (22.9-36.1)
[2023-04-19 14:49] LABS: Troponin I Less than 0.010 ng/mL (< 0.028)
[2023-04-19] MEDS ORDERED: cefTRIAXone\\ROCEPHIN 2 GM in Sodium Chloride 0.9% 100 ML IVPB SCH (15:00)
[2023-04-19] MEDS ORDERED: Albuterol 2.5 MG (3 mL) NEB NEB PRN (16:09)
[2023-04-19] MEDS ORDERED: Acetaminophen 325 MG TAB PO PRN (16:09)
[2023-04-19] MEDS ORDERED: Electrolyte Replacement Protocol 1 EACH FS SCH (16:30)
[2023-04-19] MEDS ORDERED: Potassium Chloride 20 MEQ TAB PO SCH ×2 (16:45→20:45)
[2023-04-19] MEDS ORDERED: methylPREDNISolone Sod Succ 40 MG VIAL IVP SCH (16:45)
[2023-04-19] MEDS: Ipratropium/Albuterol 3 ML NEB NEB SCH ×2 (18:26→23:03)
[2023-04-19] MEDS: Budesonide 0.5 MG/2 ML NEB INH SCH (18:27)
[2023-04-19] MEDS: Arformoterol 15 MCG/2 ML NEB NEB SCH (18:27)
[2023-04-19 20:49] LABS: Troponin I Less than 0.010 ng/mL (< 0.028)
[2023-04-19] MEDS: Atorvastatin Calcium 10 MG TAB PO SCH (20:58)
[2023-04-19] MEDS: Senokot S 8.6-50 MG TAB PO SCH (20:58)
[2023-04-19] MEDS: methylPREDNISolone Sod Succ 40 MG VIAL IVP SCH (23:31)
[2023-04-20] MEDS: Ipratropium/Albuterol 3 ML NEB NEB SCH ×6 (01:59→22:35)
[2023-04-20] MEDS: methylPREDNISolone Sod Succ 40 MG VIAL IVP SCH ×3 (05:18→17:49)
[2023-04-20 06:35] LABS: #Monocytes 0.1 thou/uL (0.11-0.59); #Neutrophils 1.6 thou/uL (1.40-6.50); %Lymphocytes 31.4 % (21.0-51.0); %Monocytes 2.1 % (0.0-10.0); %Neutrophils 66.1 % (42.0-75.0); Hematocrit 31.5 % (36.0-47.0); Mean Corpuscular HGB CONC 31.7 g/dL (32.0-36.0); Mean Corpuscular Hemoglobin 34.5 pg (27.0-31.0); Mean Corpuscular Volume 108.6 fl (78.0-98.0); Platelet Count 343 10x3/uL (130-400); RBC Distribution Width 11.9 % (11.5-14.5); White Blood Cell (WBC) Count 2.4 10x3/uL (4.8-10.8)
[2023-04-20] MEDS: Arformoterol 15 MCG/2 ML NEB NEB SCH ×2 (06:38→19:11)
[2023-04-20] MEDS: Budesonide 0.5 MG/2 ML NEB INH SCH ×2 (06:41→19:11)
[2023-04-20 06:57] LABS: Anion Gap 12 mmol/L (10-20); BUN (Urea Nitrogen) 13 mg/dL (9.8-20.1); Calc. Creatinine Clearance 0 mL/min (70-130); Calcium 8.8 mg/dL (7.8-10.44); Carbon Dioxide 30 mmol/L (23-31); Chloride 104 mmol/L (98-107); Estimated GFR 91; Glucose 123 mg/dL (83-110); Phosphorus 3.4 mg/dL (2.3-4.7); Potassium 4.3 mmol/L (3.5-5.1); Sodium 142 mmol/L (136-145)
[2023-04-20] MEDS ORDERED: Magnesium 2 GM/50 ML(in water) 2 GM in Premix 1 BAG IVPB SCH (07:30)
[2023-04-20 08:40] VITALS: BMI 15.6
[2023-04-20] MEDS: Enoxaparin 30 MG (0.3 mL) SYRINGE SC SCH (08:58)
[2023-04-20] MEDS: Polyethylene Glycol 3350 17 GM Packet PO SCH (08:58)
[2023-04-20] MEDS: Senokot S 8.6-50 MG TAB PO SCH ×2 (08:58→20:16)
[2023-04-20 13:26] LABS: Bacteria/HPF None Seen HPF (None Seen); Bilirubin Negative (Negative); Blood, Urine Negative (Negative); Clarity Clear (Clear); Glucose, Urine (Dipstick) 30 mg/dL (Negative); Ketone, Urine Negative (Negative); Leukocyte 25 Leu/uL (Negative); Nitrite Negative (Negative); Protein, Urine (Dipstick) 10 mg/dL (Neg-Trace); RBC/HPF 0-3 HPF (0-3); Squamous Epithelial 0-3 HPF (0-3); Urobilinogen Normal mg/dL (Less than 2); WBC/HPF 0-3 HPF (0-3)
[2023-04-20] MEDS ORDERED: cefTRIAXone\\ROCEPHIN 2 GM in Sodium Chloride 0.9% 100 ML IVPB SCH (14:00)
[2023-04-20] MEDS: cefTRIAXone\\ROCEPHIN 2 GM in Sodium Chloride 0.9% 100 ML IVPB SCH (15:10)
[2023-04-20] MEDS: Azithromycin 500 MG in Sodium Chloride 0.9% 250 ML 250 ML IVPB SCH (16:29)
[2023-04-20] MEDS: Atorvastatin Calcium 10 MG TAB PO SCH (20:16)
[2023-04-20] MEDS: Guaifenesin DM 100-10/5 ML UDCUP PO PRN (20:19)
[2023-04-21] MEDS: methylPREDNISolone Sod Succ 40 MG VIAL IVP SCH ×4 (00:48→16:55)
[2023-04-21] MEDS: Ipratropium/Albuterol 3 ML NEB NEB SCH ×6 (02:13→22:49)
[2023-04-21 04:52] LABS: #Monocytes 0.2 thou/uL (0.11-0.59); %Basophils 0.1 % (0.0-1.0); %Lymphocytes 9.2 % (21.0-51.0); %Neutrophils 88.3 % (42.0-75.0); Hematocrit 29.9 % (36.0-47.0); Hemoglobin 9.4 g/dL (12.0-16.0); Mean Corpuscular HGB CONC 31.4 g/dL (32.0-36.0); Mean Corpuscular Hemoglobin 34.6 pg (27.0-31.0); Mean Corpuscular Volume 109.9 fl (78.0-98.0); Mean Platelet Volume 9.1 fL (7.4-10.4); Platelet Count 306 10x3/uL (130-400); Red Blood Cell (RBC) Count 2.72 mill/uL (4.20-5.40); White Blood Cell (WBC) Count 7.9 10x3/uL (4.8-10.8)
[2023-04-21 05:18] LABS: Magnesium 2.3 mg/dL (1.6-2.6)
[2023-04-21] MEDS: Arformoterol 15 MCG/2 ML NEB NEB SCH ×2 (06:30→19:33)
[2023-04-21] MEDS: Budesonide 0.5 MG/2 ML NEB INH SCH ×2 (06:33→19:33)
[2023-04-21] MEDS: Senokot S 8.6-50 MG TAB PO SCH ×2 (08:21→21:07)
[2023-04-21] MEDS: Polyethylene Glycol 3350 17 GM Packet PO SCH (08:22)
[2023-04-21] MEDS: Enoxaparin 30 MG (0.3 mL) SYRINGE SC SCH (08:22)
[2023-04-21] MEDS ORDERED: Phenol 177 ML BOT PO PRN (15:41)
[2023-04-21] MEDS: cefTRIAXone\\ROCEPHIN 2 GM in Sodium Chloride 0.9% 100 ML IVPB SCH (16:02)
[2023-04-21] MEDS: Azithromycin 500 MG in Sodium Chloride 0.9% 250 ML 250 ML IVPB SCH (16:54)
[2023-04-21] MEDS: Lidocaine 2% Viscous Solution 10 ML, Aluminum & Magnesium Hydroxide 30 ML SSW SCH (21:06)
[2023-04-21] MEDS: Atorvastatin Calcium 10 MG TAB PO SCH (21:07)
[2023-04-22] MEDS: Ipratropium/Albuterol 3 ML NEB NEB SCH ×6 (02:09→23:25)
[2023-04-22] MEDS ORDERED: Ketorolac Tromethamine 30 MG (1 mL) VIAL IVP SCH (02:45)
[2023-04-22] MEDS: Guaifenesin DM 100-10/5 ML UDCUP PO PRN ×2 (02:45→10:52)
[2023-04-22] MEDS: methylPREDNISolone Sod Succ 40 MG VIAL IVP SCH (04:38)
[2023-04-22] MEDS: Arformoterol 15 MCG/2 ML NEB NEB SCH ×2 (06:45→19:46)
[2023-04-22] MEDS: Budesonide 0.5 MG/2 ML NEB INH SCH ×2 (06:48→19:45)
[2023-04-22] MEDS: Enoxaparin 30 MG (0.3 mL) SYRINGE SC SCH (08:39)
[2023-04-22] MEDS: Senokot S 8.6-50 MG TAB PO SCH ×2 (08:39→21:34)
[2023-04-22] MEDS: Polyethylene Glycol 3350 17 GM Packet PO SCH (08:40)
[2023-04-22] MEDS ORDERED: predniSONE 20 MG TAB PO SCH (09:30)
[2023-04-22] MEDS ORDERED: LevoFLOXacin 500 MG TAB PO SCH (09:30)
[2023-04-22] MEDS ORDERED: Scopolamine 1 mg/72 hour Patch TD SCH (18:00)
[2023-04-22] MEDS: Atorvastatin Calcium 10 MG TAB PO SCH (21:34)
[2023-04-22] MEDS: Lidocaine 2% Viscous Solution 10 ML, Aluminum & Magnesium Hydroxide 30 ML SSW SCH (21:34)
[2023-04-23] MEDS: Ipratropium/Albuterol 3 ML NEB NEB SCH ×4 (02:13→13:51)
[2023-04-23] MEDS ORDERED: LevoFLOXacin 500 MG TAB PO SCH (06:00)
[2023-04-23] MEDS: Budesonide 0.5 MG/2 ML NEB INH SCH (06:47)
[2023-04-23] MEDS: Arformoterol 15 MCG/2 ML NEB NEB SCH (06:49)
[2023-04-23] MEDS ORDERED: predniSONE 20 MG TAB PO SCH (08:00)
[2023-04-23] MEDS: Senokot S 8.6-50 MG TAB PO SCH (09:29)
[2023-04-23] MEDS: Enoxaparin 30 MG (0.3 mL) SYRINGE SC SCH (09:29)
[2023-04-23] MEDS: Polyethylene Glycol 3350 17 GM Packet PO SCH (09:30)
[2023-04-23 11:08] VITALS: BP 136/70; TEMP 98.5
[2023-04-24] MEDS ORDERED: LevoFLOXacin 250 MG TAB PO SCH (06:00)
== END 2023-04-23 18:30 | disposition home or self-care (01) | DRG 189 ==
LOC: ERS 13:40 → MSONC 15:45
PROVIDERS: ADMIT Family Medicine; ATTEND Family Medicine
DX: J96.21 Acute and chronic respiratory failure with hypoxia (principal); J44.1 Chronic obstructive pulmonary disease with (acute) exacerbation; E44.0 Moderate protein-calorie malnutrition; I50.32 Chronic diastolic (congestive) heart failure; Z68.1 Body mass index [BMI] 19.9 or less, adult; I11.0 Hypertensive heart disease with heart failure; J96.22 Acute and chronic respiratory failure with hypercapnia; F39 Unspecified mood [affective] disorder; K21.9 Gastro-esophageal reflux disease without esophagitis; E78.5 Hyperlipidemia, unspecified; E87.6 Hypokalemia; D64.9 Anemia, unspecified; Z11.52 Encounter for screening for COVID-19; Z99.81 Dependence on supplemental oxygen
CPT/HCPCS: 36415; 71045; 74018; 80048; 80053; 81001; 82805; 83735; 83880; 84100; 84484; 85025; 85610; 85730; 87040; 87633; 87635; 93005; 94640; 94644; 94760; 96365; 96367; 96375; J0456; J0696; J1650; J1885; J2920; J3475; J3490; J7050; J7512; J7611; J7620; J7626

== ENCOUNTER 2023-05-27 09:36 | Emergency (ER) | payer MEDICARE ==
[2023-05-27 10:02] LABS: #Eosinphils 0.1 thou/uL (0.0-0.7); #Monocytes 0.4 thou/uL (0.11-0.59); #Neutrophils 2.7 thou/uL (1.40-6.50); %Basophils 0.7 % (0.0-1.0); %Eosinophils 1.3 % (0.0-10.0); %Lymphocytes 31.4 % (21.0-51.0); %Monocytes 8.1 % (0.0-10.0); %Neutrophils 58.3 % (42.0-75.0); Hemoglobin 10.1 g/dL (12.0-16.0); Mean Corpuscular HGB CONC 31.6 g/dL (32.0-36.0); Mean Corpuscular Hemoglobin 34.6 pg (27.0-31.0); Mean Corpuscular Volume 109.6 fl (78.0-98.0); Mean Platelet Volume 8.7 fL (7.4-10.4); Platelet Count 333 10x3/uL (130-400); RBC Distribution Width 12.4 % (11.5-14.5); Red Blood Cell (RBC) Count 2.92 mill/uL (4.20-5.40); White Blood Cell (WBC) Count 4.6 10x3/uL (4.8-10.8)
[2023-05-27 10:27] LABS: ALT (SGPT) 12 U/L (8-55); AST (SGOT) 19 U/L (5-34); Albumin 3.9 g/dL (3.4-4.8); Alkaline Phosphatase 70 U/L (40-110); Anion Gap 12 mmol/L (10-20); BUN (Urea Nitrogen) 12 mg/dL (9.8-20.1); Bilirubin, Total 0.6 mg/dL (0.2-1.2); Calc. Creatinine Clearance 0 mL/min (70-130); Calcium 9.7 mg/dL (7.8-10.44); Carbon Dioxide 30 mmol/L (23-31); Chloride 100 mmol/L (98-107); Estimated GFR 79; Globulin 3.3 g/dL (2.4-3.5); Glucose 88 mg/dL (83-110); Lipase 10 U/L (8-78); Magnesium 2.2 mg/dL (1.6-2.6); Potassium 3.9 mmol/L (3.5-5.1); Protein, Total 7.2 g/dL (5.8-8.1)
[2023-05-27 10:31] LABS: Troponin I 0.012 ng/mL (< 0.028)
[2023-05-27 11:22] LABS: Sodium 141 mmol/L (136-145)
[2023-05-27] MEDS ORDERED: Magnesium Citrate 300 ML BOT ONE (11:49)
[2023-05-27] MEDS ORDERED: Ondansetron PF 4 MG/2 ML Vial ONE (13:26)
[2023-05-27] MEDS ORDERED: Morphine 4 MG/ML VIAL ONE (14:28)
[2023-05-27 15:10] LABS: Troponin I Less than 0.010 ng/mL (< 0.028)
== END 2023-05-27 13:54 | disposition home or self-care (01) ==
LOC: ERS 09:36
DX: K56.41 Fecal impaction (principal); J44.9 Chronic obstructive pulmonary disease, unspecified; I11.0 Hypertensive heart disease with heart failure; I50.9 Heart failure, unspecified
CPT/HCPCS: 36415; 71045; 74177; 80053; 83690; 83735; 83880; 84443; 84484; 85025; 93005; 96374; 96375; J2270; J2405